=== PATIENT | female | born 1945 | race Caucasian/White ===

== ENCOUNTER → 2017-02-16 | Day surgery (SDC) | payer BC ==
[2017-02-05 14:50] VITALS: Ht 156.2 cm; Wt 72.7 kg
[~2017-02-16] VITALS: Ht 156.2 cm; Wt 72.7 kg
[~2017-02-16] MED LIST: 500ML BSS 0.3ML EPI 1:1000PF IRRIG ONE; ACETAMINOPHEN 325 MG TAB PO PRN; ALPR-411 PO; AMVISC PLUS 0.8ML SYRINGE INT OCU ONE; ASPCH81X PO; ATROPINE SULFATE 0.1 MG/ML 5ML SYR IV PRN; BRIMONIDINE TART 0.2% OP SOLN PER DROP CHARGE ONE; BSS FLUSH ONE; BUPR100T8 PO; CLB/200 PO; COEN10CA5 PO; CYAN100020 PO; DTR5 PO; ENDOCOAT 0.85ML SYRINGE INT OCU ONE; ESCI1TAB10 PO; EpHEDrine SULFATE INJ 50 MG/ML AMP IV PRN; EpINEphrine INJ 1MG/ML AMP 1 MG/ML AMP ONE; KRIL1CAP16 PO; LACTATED RINGER'S 1000ML 500 ML IV SCH; LEVO100T84 PO; LIDOCAINE 4% OP SOLN DROP CHARGE ONE; LIDOCAINE 4% OP SOLN DROP CHARGE OPL SCH; LIDOCAINE HCL 1% MPF 2 ML VIAL ONE; MELA5CAP PO; METO25TA3 PO; MIDAZOLAM HCL 1 MG/ML 2ML VIAL ONE; MOXIFLOXACIN OPH SOLN PER DROP CHARGE ONE; MULT-506 PO; POVIDONE-IODINE OP SOLN 30 ML BTL ONE; PRAV20TA PO; PROPARACAINE 0.5% OP SOLN PER DROP CHARGE OPL SCH; PRT/20 PO; QUIN10TA25 PO; TOBRAMYCIN/DEXAMETHASONE OPH OINT PER APPLN CHARGE ONE; VTMD1000 PO
[2017-02-16] MEDS: PHENYLEPHRINE HCL 2.5% OP SOLN PER DROP CHARGE OPL SCH ×2 (10:43→10:48)
[2017-02-16] MEDS: TROPICAMIDE 1% OP SOLN PER DROP CHARGE OPL SCH ×2 (10:44→10:49)
[2017-02-16] MEDS: CYCLOPENTOLATE HCL 1% OP SOLN PER DROP CHARGE OPL SCH ×2 (10:45→10:50)
[2017-02-16] MEDS: KETOROLAC 0.5% OP SOLN PER DROP CHARGE OPL SCH ×2 (10:46→10:51)
[2017-02-16] MEDS: MOXIFLOXACIN OPH SOLN PER DROP CHARGE OPL SCH ×2 (10:47→10:56)
--- NOTE | 2017-02-16 10:54 | History & Physical Bridge - [place] ---
H&P Re-Evaluation Bridge Note: I have examined the patient, reviewed the History & Physical and in the interval since the performance of the History & Physical I have noted the following changes of clinical significance: No changes noted
--- NOTE | 2017-02-16 11:47 | Discharge Instructions-SurgCtr ---
Discharge Instructions Date of Service Feb 16, 2017. Visit Reason for Visit: Cataract Left Eye Discharge Discharge Diagnosis / Problem: cataract left eye Discharge Goals Goal(s): Improve function Activity Recommendations Activity Limitations: per Instructions/Follow-up section Lifting Limitations: no more than 5 pounds Anesthesia . Post Anesthesia Instructions: If you have had General Anesthesia or IV Sedation: * Do not drive today. * Resume driving when surgeon permits. * Do not make important decisions or sign legal documents today. * Call surgeon for: 1. Temperature elevations greater than 101 degrees F. 2. Uncontrollable pain. 3. Excessive bleeding. 4. Persistent nausea and vomiting. 5. Medication intolerance (nausea, vomiting or rash). * For nausea and vomiting use only clear liquids such as: tea, soda, bouillon until nausea subsides, then gradually increase diet as tolerated. * If you have any concerns or questions, call your surgeon's office. If physician is unavailable and it is an emergency, call 911 or go to the nearest emergency room. . Instructions / Follow-Up Instructions / Follow-Up ACTIVITY RECOMMENDATIONS: * Light activities * You may walk outside, read, watch television. * Mild irritation and blurred vision are common for the first few days, redness around the white part of the eye is common. MEDICATIONS: Resume previous medications unless instructed otherwise by your surgeon. Eye drops (today and tomorrow): Cipro - one drop in operative eye every 2 hours while awake Prednisolone 1% - one drop in operative eye every 2 hours while awake Ilevro - one drop operative eye 1 times daily SPECIAL CARE INSTRUCTIONS: * If any problems or concerns, please call Dr. Barrientos's office at . * Keep plastic shield taped over eye to sleep at night. * Keep plastic shield taped over eye except to administer eye drops. * Keep plastic shield on until office visit the following day. FOLLOW UP VISIT: Follow-up with Dr. Barrientos in the [place] office as scheduled. If not already scheduled, please call the office at . Diet Recommendations Home Diet: resume previous diet Procedures Procedures Performed: Left Cataract Phacoemulsification With Intraocular Lens Implant Pending Studies Studies pending at discharge: no Medical Emergencies . Who to Call and When: Medical Emergencies: If at any time you feel your situation is an emergency, please call 911 immediately. . Non-Emergent Contact Non-Emergency issues call your: Rrt . . "Provider Documentation" section prepared by Дмитрий Barrientos. .
--- NOTE | 2017-02-16 11:47 | [facility] Post Operative Brief Note ---
Immediate Operative Summary Operative Date Feb 16, 2017. Pre-Operative Diagnosis Cataract Left Eye Post-Operative Diagnosis Same Procedure(s) Performed Left Cataract Phacoemulsification With Intraocular Lens Implant Surgeon Dr. 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
[2017-02-16 11:48] VITALS: TEMP 36.4
--- NOTE | 2017-02-16 11:57 | OPERATIVE REPORT ---
DATE OF OPERATION: 02/16/2017 PREOPERATIVE DIAGNOSIS: Cataract, left eye. POSTOPERATIVE DIAGNOSIS: Cataract, left eye. PROCEDURE: Phacoemulsification cataract extraction with intraocular lens placement, left eye. SURGEON: Dr. Barrientos. COMPLICATIONS: None. ESTIMATED BLOOD LOSS: None. ANESTHESIA: Topical with sedation. OPERATION AND FINDINGS: After informed consent was obtained in the holding area the patient was wheeled back to the Operating Room where cardiac monitoring leads and oxygen by nasal cannula was administered by Anesthesia. Gentle IV sedation was given, and the patient's left eye was prepped and draped in usual sterile fashion. A wire lid speculum was placed into the left eye and the operating microscope was swung into position. Using 0.12 forceps and a Supersharp blade a paracentesis port was made 3 o'clock hours away from the 3 o'clock position of patient's left eye. 1% non-preserved Lidocaine was then injected into the anterior chamber for anesthesia. A 2.2 mm keratotome blade was then used to make a shelved clear corneal incision at the 3 o'clock position of her left eye. Amvisc was injected into the anterior chamber and a cystotome and Utrata forceps were used to perform a curvilinear capsulorrhexis. BSS on a hydrodissection cannula was used to hydrodissect the lens nucleus away from the capsular bag. The phacoemulsification handpiece was then used in a stop and chop fashion to remove the lens nucleus. The irrigation and aspiration handpiece was then used to remove the residual cortical material. Amvisc was injected into the capsular bag and anterior chamber and a Bausch & Lomb MX60 25.0 Diopter intraocular lens was injected into the capsular bag. Irrigation and aspiration handpiece was used to remove the residual viscoelastic material. The wounds were hydrated and noted to be watertight. The wire lid speculum was removed from the eye. Vigamox, Brimonidine, and TobraDex ointment were placed on the eye and it was shielded. It should be noted that EndoCoat was used during the case to protect the cornea endothelium. DISPOSITION: The patient tolerated the procedure well and was wheeled to the post anesthesia care unit in stable condition. I attest to the content of the Intraoperative Record and any orders documented therein. Any exceptions are noted below. I attest to the content of the Intraoperative Record and any orders documented therein. Any exceptions are noted below. MTDD
--- NOTE | 2017-02-16 12:06 | Anesthesia Progress Nt - [facility] ---
Anesthesia Post Op Note Date & Time Feb 16, 2017 at 12:06 Vital Signs Pain Intensity: 0 Vital Signs Past 12 Hours Date Time Temp Pulse Resp B/P (MAP) Pulse Ox O2 Delivery O2 Flow Rate FiO2 02/16/17 11:48 36.4 64 16 144/76 (98) 95 Room Air 02/16/17 10:34 36.3 61 18 134/73 (93) 99 Room Air Notes Mental Status: alert / awake / arousable, participated in evaluation Pt Amnestic to Procedure: Yes Nausea / Vomiting: adequately controlled Pain: adequately controlled Airway Patency, RR, SpO2: stable & adequate BP & HR: stable & adequate Hydration State: stable & adequate Anesthetic Complications: no major complications apparent
[2017-02-16 12:16] VITALS: BP 143/80; PULSE 68; O2SAT 99
== END | disposition home or self-care (01) ==
LOC: X.SURG 09:38
PROVIDERS: ATTEND Ophthalmology
DX: H26.9 Unspecified cataract (principal); I25.10 Atherosclerotic heart disease of native coronary artery without angina pectoris; I25.2 Old myocardial infarction; I12.9 Hypertensive chronic kidney disease with stage 1 through stage 4 chronic kidney disease, or unspecified chronic kidney disease; N18.3 Chronic kidney disease, stage 3 (moderate); Z86.73 Personal history of transient ischemic attack (TIA), and cerebral infarction without residual deficits; Z88.5 Allergy status to narcotic agent; Z96.649 Presence of unspecified artificial hip joint; Z85.850 Personal history of malignant neoplasm of thyroid

== ENCOUNTER → 2017-03-16 | Day surgery (SDC) | payer BC ==
[2017-03-13 08:23] VITALS: Ht 156.2 cm; Wt 72.7 kg
[~2017-03-16] VITALS: Ht 156.2 cm; Wt 72.7 kg
[~2017-03-16] MED LIST changes: -LIDOCAINE 4% OP SOLN DROP CHARGE OPL SCH; +LIDOCAINE 4% OP SOLN DROP CHARGE OPR SCH; +ONDANSETRON INJ 2 MG/ML 2 ML VIAL IV PRN; -PROPARACAINE 0.5% OP SOLN PER DROP CHARGE OPL SCH; +PROPARACAINE 0.5% OP SOLN PER DROP CHARGE OPR SCH
[2017-03-16] MEDS: PHENYLEPHRINE HCL 2.5% OP SOLN PER DROP CHARGE OPR SCH ×2 (12:43→12:48)
[2017-03-16] MEDS: TROPICAMIDE 1% OP SOLN PER DROP CHARGE OPR SCH ×2 (12:44→12:49)
[2017-03-16] MEDS: CYCLOPENTOLATE HCL 1% OP SOLN PER DROP CHARGE OPR SCH ×2 (12:45→12:50)
[2017-03-16] MEDS: KETOROLAC 0.5% OP SOLN PER DROP CHARGE OPR SCH ×2 (12:46→12:51)
[2017-03-16] MEDS: MOXIFLOXACIN OPH SOLN PER DROP CHARGE OPR SCH ×2 (12:47→12:57)
--- NOTE | 2017-03-16 14:13 | Discharge Instructions-SurgCtr ---
Discharge Instructions Date of Service Mar 16, 2017. Visit Reason for Visit: Cataract Right Eye Discharge Discharge Diagnosis / Problem: cataract right eye Discharge Goals Goal(s): Improve function Activity Recommendations Activity Limitations: per Instructions/Follow-up section Lifting Limitations: no more than 5 pounds Anesthesia . Post Anesthesia Instructions: If you have had General Anesthesia or IV Sedation: * Do not drive today. * Resume driving when surgeon permits. * Do not make important decisions or sign legal documents today. * Call surgeon for: 1. Temperature elevations greater than 101 degrees F. 2. Uncontrollable pain. 3. Excessive bleeding. 4. Persistent nausea and vomiting. 5. Medication intolerance (nausea, vomiting or rash). * For nausea and vomiting use only clear liquids such as: tea, soda, bouillon until nausea subsides, then gradually increase diet as tolerated. * If you have any concerns or questions, call your surgeon's office. If physician is unavailable and it is an emergency, call 911 or go to the nearest emergency room. . Instructions / Follow-Up Instructions / Follow-Up ACTIVITY RECOMMENDATIONS: * Light activities * You may walk outside, read, watch television. * Mild irritation and blurred vision are common for the first few days, redness around the white part of the eye is common. MEDICATIONS: Resume previous medications unless instructed otherwise by your surgeon. Eye drops (today and tomorrow): Cipro - one drop in operative eye every 2 hours while awake Prednisolone 1% - one drop in operative eye every 2 hours while awake Ilevro - one drop operative eye 1 times daily SPECIAL CARE INSTRUCTIONS: * If any problems or concerns, please call Dr. Barrientos's office at . * Keep plastic shield taped over eye to sleep at night. * Keep plastic shield taped over eye except to administer eye drops. * Keep plastic shield on until office visit the following day. FOLLOW UP VISIT: Follow-up with Dr. Barrientos in the [place] office as scheduled. If not already scheduled, please call the office at . Diet Recommendations Home Diet: resume previous diet Procedures Procedures Performed: Right Cataract Phacoemulsification With Intraocular Lens Implant Pending Studies Studies pending at discharge: no Medical Emergencies . Who to Call and When: Medical Emergencies: If at any time you feel your situation is an emergency, please call 911 immediately. . Non-Emergent Contact Non-Emergency issues call your: Snuff Drier . . "Provider Documentation" section prepared by Дмитрий Barrientos. .
[2017-03-16 14:15] VITALS: TEMP 36.2
--- NOTE | 2017-03-16 14:15 | [facility] Operative Report ---
Operative Report Operative Date Mar 16, 2017. Pre-Operative Diagnosis Right Eye Cataract Post-Operative Diagnosis Same Procedure(s) Performed Right Cataract Phacoemulsification With Intraocular Lens Implant Surgeon Dr Barrientos It Support Analyst Surgeon(s) None Estimated Blood Loss 0ml Findings cataract right eye Fluids (cc crystalloids) see anesthesia record Specimens None Drains none Anesthesia local with sedation Complication(s) None Disposition Recovery Room / PACU Implants [id number] 22.0 Indications decreased vision right eye Description of Procedure After informed consent was obtained in the holding area the patient was wheeled back to the operating room where cardiac monitoring leads and oxygen by nasal cannula was administered by Anesthesia. Gentle IV sedation was given, and the patient's right eye was prepped and draped in usual sterile fashion. A wire lid speculum was placed into the right eye and the operating microscope was swung into position. Using 0.12 forceps and a Supersharp blade a paracentesis port was made 3 o'clock hours away from the 9 o'clock position of the patient's right eye. 1% non-preserved Lidocaine was then injected into the anterior chamber for anesthesia. A 2.2 mm keratotome blade was then used to make a shelved clear corneal incision at the 9 o'clock position of the right eye. Amvisc was injected into the anterior chamber and a cystotome and Utrata forceps were used to perform a curvilinear capsulorrhexis. BSS on a hydrodissection cannula was used to hydrodissect the lens nucleus away from the capsular bag. The phacoemulsification handpiece was then used in a stop and chop fashion to remove the lens nucleus. The irrigation and aspiration handpiece was then used to remove the residual cortical material. Amvisc was injected into the capsular bag and anterior chamber and a Bausch & Lomb MX60 22.0 Diopter intraocular lens was injected into the capsular bag. Irrigation and aspiration handpiece was used to remove the residual viscoelastic material. The wounds were hydrated and noted to be watertight. The wire lid speculum was removed from the eye. Vigamox, Brimonidine, and TobraDex ointment were placed on the eye and it was shielded. It should be noted that EndoCoat was used extensively during the case to protect the cornea endothelium. DISPOSITION: The patient tolerated the procedure well and was wheeled to the post anesthesia care unit in stable condition. I attest to the content of the Intraoperative Record and any orders documented therein. Any exceptions are noted below. I attest to the content of the Intraoperative Record and any orders documented therein. Any exceptions are noted below.
--- NOTE | 2017-03-16 14:25 | Anesthesia Progress Nt - [facility] ---
Anesthesia Post Op Note Date & Time Mar 16, 2017 at 14:25 Vital Signs Pain Intensity: 0 Vital Signs Past 12 Hours Date Time Temp Pulse Resp B/P (MAP) Pulse Ox O2 Delivery O2 Flow Rate FiO2 03/16/17 14:15 36.2 65 16 135/62 (86) 94 Room Air 03/16/17 12:34 37.1 71 22 111/71 (84) 93 Room Air Notes Mental Status: alert / awake / arousable, participated in evaluation Pt Amnestic to Procedure: No Nausea / Vomiting: adequately controlled Pain: adequately controlled Airway Patency, RR, SpO2: stable & adequate BP & HR: stable & adequate Hydration State: stable & adequate Anesthetic Complications: no major complications apparent non distressing recall as discussed preop
[2017-03-16 14:38] VITALS: BP 149/72; PULSE 65; O2SAT 98
== END | disposition home or self-care (01) ==
LOC: X.SURG 12:11
PROVIDERS: ATTEND Ophthalmology
DX: H25.11 Age-related nuclear cataract, right eye (principal); I10 Essential (primary) hypertension; E78.5 Hyperlipidemia, unspecified; M06.9 Rheumatoid arthritis, unspecified; F32.9 Major depressive disorder, single episode, unspecified; F41.9 Anxiety disorder, unspecified; Z79.82 Long term (current) use of aspirin; I25.2 Old myocardial infarction; Z86.73 Personal history of transient ischemic attack (TIA), and cerebral infarction without residual deficits; E03.9 Hypothyroidism, unspecified; Z96.649 Presence of unspecified artificial hip joint; I25.10 Atherosclerotic heart disease of native coronary artery without angina pectoris; K21.9 Gastro-esophageal reflux disease without esophagitis; M19.90 Unspecified osteoarthritis, unspecified site

== ENCOUNTER 2020-03-23 11:01 | Inpatient (IN) ==
--- NOTE | 2020-03-23 11:33 | Emergency Department Note ---
History of Present Illness General Chief complaint: Confusion Stated complaint: CONFUSION,HAND CATH DONE YESTERDAY Time Seen by Provider: 03/23/20 11:12 History of Present Illness This is a 75-year-old female that presents to the emergency department via private vehicle accompanied by female with complaints of "confusion, had cath done yesterday". The patient states that yesterday she underwent cardiac cathet erization procedure. She states that she was doing well and was discharged around 1:30 PM. The female friend at bedside states that prior to the procedure around 6:30 AM when she dropped her off she was doing well and that was the suspected last known well time. When she picked up from the procedure the patient seemed okay but when they pulled into the driveway of the house after the procedure the patient did not want it out of the car and seemed to be disoriented as to where she wants. The patient was then alone throughout the evening and then the friend went to pick her up again today at 8 AM and she notes that the patient thought she was at her daughter's house when indeed she was at her own house. The friend at bedside notes that this is the only unusual feature is that she does seems to be disoriented to where she is otherwise she seems okay. No fevers or chills. No chest pain or shortness of breath. Patient does note a history of [place] in 2012. No history of CVA. She takes a baby aspirin daily and did not stop taking this for the procedure. Home Medications Home Medications Medication Instructions Recorded Confirmed Type albuterol sulfate 90 mcg INHALATION UD PRN 03/23/20 03/23/20 History alprazolam 0.25 mg PO BID PRN 03/23/20 03/23/20 History aspirin [Aspirin Low Dose] 81 mg PO DAILY 03/23/20 03/23/20 History coenzyme Q10 [CoQ-10] 0 mg PO BID 03/23/20 03/23/20 History ezetimibe 0 mg PO DAILY 03/23/20 03/23/20 History furosemide 20 mg PO UD 03/23/20 03/23/20 History levothyroxine 125 mcg PO QAM 03/23/20 03/23/20 History meloxicam 7.5 - 15 mg PO UD PRN 03/23/20 03/23/20 History metoprolol succinate 0 mg PO BID 03/23/20 03/23/20 History nitroglycerin 0.4 mg SUBLINGUAL UD PRN 03/23/20 03/23/20 History oxybutynin chloride 10 mg PO DAILY PRN 03/23/20 03/23/20 History pantoprazole 20 mg PO DAILY 03/23/20 03/23/20 History pravastatin 40 mg PO HS 03/23/20 03/23/20 History prednisone 20 mg PO UD 03/23/20 03/23/20 History quinapril 10 mg PO DAILY 03/23/20 03/23/20 History Allergies Allergy/AdvReac Type Severity Reaction Status Date / Time morphine Allergy Unknown SHORTNESS Verified 03/23/20 11:49 OF BREATH simvastatin Allergy Unknown Verified 03/23/20 11:49 Past Med/Surg History Medical History CAD (coronary artery disease), [place] coronary artery Carotid artery stenosis Chronic diastolic CHF (congestive heart failure) GERD (gastroesophageal reflux disease) History of CVA (cerebrovascular accident) HTN (hypertension), benign Hx of myocardial infarction Hyperlipidemia Hypothyroidism Severe aortic valve stenosis Subclavian artery stenosis Surgical History History of hysterectomy Hx of cardiac catheterization Social History Smoking Status: Never smoker Hx Alcohol Use: No Hx Substance Use: No Preferred Language: Greek Communication Ability: Effective Beliefs That Will Affect Care: None Current Living Situation: Alone Feels Safe at Home: Yes Review of Systems A total of 10 systems reviewed and were otherwise negative Physical Exam Vital Signs Vital Signs - 24 hr 03/23/20 11:02 03/23/20 13:01 Temperature 36.8 C Temperature Source Oral Pulse Rate 93 H Pulse Rate [Apical] 75 Pulse Rhythm Regular Pulse Strength Normal Respiratory Rate 16 18 Respiratory Effort / Characteristics Non-Labored Spontaneous Respiratory Depth Normal Respiratory Pattern Regular Blood Pressure 96/52 L Blood Pressure [Left Arm] 121/55 L Blood Pressure Mean 66 Blood Pressure Mean [Left Arm] 77 Blood Pressure Position Sitting Pulse Oximetry 96 95 Oxygen Delivery Method Room Air Room Air Sepsis Recent Fever Within 48 Hours No Sepsis New/Unexplained Change in Mental Status N/A Sepsis Action Taken by Nursing No Action Required VITAL SIGNS - Vital signs and nursing notes were reviewed. Stable and afebrile, mildly hypotensive. GENERAL -75-year-old female appearing her stated age who is in no acute distress. Communicates well with provider and answers questions appropriately. SKIN - Without rashes. Bruising to the right medial wrist without any large hematoma or evidence of active extravasation. HEAD - NC/AT. EYES - PERRL with EOMI bilaterally. Sclera anicteric. Palpebral conjunctiva pink and moist with no injection noted. EARS - No deformities of external structures noted on gross examination bilaterally. No pain elicited with palpation of the tragus bilaterally. External auditory canals without discharge or otorrhea. Tympanic membranes pearly thorpe without retraction or bulging. No fluid or purulent material visualized behind the TM. Handle of malleus, umbo, cone of light, pars tensa/flaccid all easily vi sualized. NOSE - Midline and without cyanosis. No epistaxis or purulent drainage noted. Septum midline without deviation or septal hematoma noted. MOUTH/OROPHARYNX - Without perioral cyanosis. Buccal mucosa pink and moist and without leukoplakia. Tongue midline with equal elevation of palate bilaterally. No tonsillar hypertrophy, erythema, or exudates noted. Fair dentition noted. NECK - Neck with FROM. Supple to palpation. No lymphadenopathy noted. No nuchal rigidity. LUNGS - Chest wall symmetric without accessory muscle use, intercostals retractions, or central cyanosis. Normal vesicular breath sounds CTA B/L. No wheezes, rales, or rhonchi appreciated. CARDIAC - RRR EXTREMITIES - No clubbing or peripheral cyanosis. No pretibial edema present. +5/5 strength noted in UE/LE bilaterally. NEUROLOGIC - Cranial nerves II through XII grossly intact. Sensory intact to light touch throughout. PSYCH - A&Ox3 and cooperates fully with examiner. Pt is very pleasant and interacts well with examiner. Course Administered Medications Discontinued Medications Ioversol (Optiray 320 125ml) 118 ml IV ONCE ONE Stop: 03/23/20 13:00 Last Admin: 03/23/20 13:00 Dose: 118 ml Documented by: [id number] Medical Decision Making Laboratory Data Result diagrams: 03/23/20 11:40 03/23/20 11:40 Lab Results 03/23/20 03/23/20 03/23/20 Range/Units 11:40 11:40 11:40 WBC 9.27 (4.8-10.8) K/uL RBC 4.07 L (4.2-5.4) M/uL Hgb 13.1 (12.0-16.0) g/dL Hct 39.4 (37-47) % MCV 96.8 (80-100) fL MCH 32.2 (25-34) pg MCHC 33.2 (32-36) g/dL RDW Std Deviation 48.0 H (36.4-46.3) fL RDW Coeff of [place] 13.6 (11.5-14.5) % Plt Count 265 (130-400) K/uL MPV 8.9 (7.4-10.4) fL Immature Gran % (Auto) 0.1 % Neut % (Auto) 74.6 % Lymph % (Auto) 14.1 % [place] % (Auto) 9.3 % Eos % (Auto) 1.7 % Baso % (Auto) 0.2 % Neut # (Auto) 6.91 H (1.4-6.5) K/uL Lymph # (Auto) 1.31 (1.2-3.4) K/uL [place] # (Auto) 0.86 H (0.11-0.59) K/uL Eos # (Auto) 0.16 (0-0.5) K/uL Baso # (Auto) 0.02 (0-0.2) K/uL Immature Gran # (Auto) 0.01 (0.00-0.02) K/uL PT 10.7 (9.0-12.0) Seconds INR 1.0 (0.9-1.1) APTT 28.1 (21.0-31.0) Seconds PTT Ratio 1.0 Sodium 139 (136-145) mmol/L Potassium 4.3 D (3.5-5.1) mmol/L Chloride 107 (98-107) mmol/L Carbon Dioxide 28 (21-32) mmol/L Anion Gap 4.0 (3-11) BUN 13 (7-18) mg/dl Creatinine 0.93 (0.6-1.2) mg/dl Est Cr Clr Drug Dosing 44.2 ml/min Est GFR ( Amer) 68.7 Est GFR (Non-Af Amer) 59.3 BUN/Creatinine Ratio 14.4 (10-20) Glucose 94 (70-99) mg/dl Calcium 8.8 (8.5-10.1) mg/dl Magnesium 2.1 (1.8-2.4) mg/dl Total Bilirubin 0.5 (0.2-1) mg/dl AST 29 (15-37) U/L ALT 33 (12-78) U/L Alkaline Phosphatase 62 (45-117) U/L Troponin I 0.023 (0-0.045) ng/ml Total Protein 7.2 (6.4-8.2) gm/dl Albumin 3.4 (3.4-5.0) gm/dl Globulin 3.8 (2.5-4.0) gm/dl Albumin/Globulin Ratio 0.9 (0.9-2) Imaging Data Radiologist's Impression: CT head/brain wo con CLINICAL HISTORY: Stroke evaluation COMPARISON STUDY: No previous studies for comparison. TECHNIQUE: Axial CT of the brain is performed from the vertex to the skull base. IV contrast was not administered for this examination. A dose lowering technique was utilized adhering to the principles of ALARA. CT DOSE: FINDINGS: There is a confluent right frontal lobe hypodensity involving thorpe and white matter measuring 5 cm. This is compatible with a subacute infarct. There is no CT evidence of acute acute hemorrhage. There is no midline shift. There is a nonspecific 2 mm calcific focus in the right sylvian fissure region as visualized image #9/59. There is mild right hemispheric edema with right sciatic cortical effacement. There are moderately extensive white matter hypodensities likely on a small vessel basis. There is no evidence of pathologic ventricular dilatation. There is no evidence of acute sinusitis IMPRESSION: 1. Subacute 5 cm right frontal lobe infarct in the right MCA distribution. 2. No evidence of acute hemorrhage. ACT 112: Negative or not required by law. Electronically signed by: Valdo Jaimes M.D. 03/23/2020 1:17 PM CTA ANGIOGRAPHY OF THE HEAD CLINICAL HISTORY: Stroke evaluation COMPARISON STUDY: No previous studies for comparison. TECHNIQUE: Helical axial images of the head were obtained following uneventful intravenous administration of 118 cc of Optiray 320. Sagittal and coronal reconstructions were viewed as well as maximal intensity projections on an independent 3-D workstation. Automated exposure control was utilized for the study. A dose lowering technique was utilized adhering to the principles of ALARA. CT DOSE: 1060.33 mGy.cm FINDINGS: Please note that the head CT will be reported separately. No acute intracranial hemorrhage, midline shift or mass effect is present. Ventricular system is normal. Basilar cisterns are patent. There are no extra axial collections. Hypodensity with loss of thorpe-white differentiation within the right frontal lobe is better depicted on the head CT will be reported separately . The bilateral M1, M2, A1 and A2 segments are patent. No abrupt vessel cut off is identified. There is no intraluminal thrombus. The posterior circulation is also intact. No intracranial aneurysm or dissection is noted. Note is made of mild calcified plaque within the bilateral cavernous carotids. IMPRESSION: 1. No intraluminal thrombus or abrupt vessel cut off identified. No intracranial aneurysm. 2. Hypodensity with loss of thorpe-white infiltration within the right frontal lobe, shown better on head CT. This suggests a subacute to acute infarct. ACT 112: Negative or not required by law. Electronically signed by: Lb Monroy M.D. 03/23/2020 1:[address] angio neck with con CLINICAL HISTORY: 75 years-old Female with Stroke evaluation. Acute strokelike symptoms COMPARISON STUDY: CTA of the head of same day TECHNIQUE: Following the IV administration of 118 mL of Optiray 320, CT angiogram of the neck was performed from the aortic arch to the skull base. Images are reviewed in the axial, sagittal, and coronal planes. 3-D MIPS images are created and assessed. IV contrast was administered without complication. All measurements were calculated based on NASCET criteria. A dose lowering technique was utilized adhering to the principles of ALARA. FINDINGS: Mixed plaque of the thoracic aortic arch. Severe calcified plaque the proximal left subclavian artery results in high-grade stenosis. Large calcified plaque at the origin of the right subclavian artery results in approximately 60% stenosis on image 58 series 6. Mixed plaque of the carotid bulbs bilaterally. Endarterectomy changes of the right internal carotid artery with patent graft. There is moderate multifocal luminal irregularity involving the distal right cervical segment without high-grade stenosis. The left ICA is patent. Dominant right vertebral artery. Calcified plaque at the origin of the right vertebral artery causes greater than 50% luminal narrowing, image 85 series 6. The remainder of the right vertebral artery is widely patent. Calcified plaque at the origin of the left vertebral artery on image 76 series 6 causes high- grade stenosis. There is additional multifocal areas of high-grade stenosis involving the V2 segment (please see bookmarks). Imaged basilar artery is patent. No pneumothorax. Surgical clips are noted within the region of the right thyroid. Atrophic parotid glands. Secretions are noted within the left piriform sinus. Patent airway. Prior bilateral lens replacement. Multilevel degenerative changes of the spine. IMPRESSION: 1. Mixed plaque of the bilateral carotid bulbs, right greater than left with prior right carotid endarterectomy. No high-grade stenosis of the carotid arteries. 2. High-grade stenosis of the proximal left subclavian and vertebral arteries. 3. Large calcified plaque at the proximal right subclavian artery results in approximately 60% stenosis. 4. At least 50% luminal narrowing at the origin of the right vertebral artery. ACT 112: Negative or not required by law. The above report was generated using voice recognition software. It may contain grammatical, syntax or spelling errors. Electronically signed by: Carl Mac M.D. 03/23/2020 1:56 PM ECG Data Additional Comments: Normal sinus rhythm at a rate of 71 bpm. QTc 419. QRS 72. No ST elevation. No evidence of [place]. This was compared to EKG of March 21, 2015 and no significant change was found. MDM Narrative Patient was seen and evaluated as above in room B03. Review was performed of nursing notes and vital signs. I did review pertinent previous visits and patient history. After obtaining a thorough history and physical examination the above work up was performed. Patient recently underwent cardiac catheterization yesterday by Dr. Wu. Patient presents with mildly lower blood pressure but no focal deficit on my examination. She is afebrile. Patient is alert and oriented on my examination. Friend at bedside also agrees that her confusion to location seems to have resolved. There is no leukocytosis or emergent anemia. No emergent metabolic disturbance. CTA head and neck were obtained. Patient is certainly outside of the window for TPA noting her last known well is greater than 24 hours ago. There is unfortunately an acute to subacute appearing 5 cm right frontal lobe infarct in the right MCA distribution. I did discuss this with the attending physician as well as the hospitalist, Dr. Paulino. Patient was informed upon the findings. She will be admitted for further evaluation and management. Please refer to further documentation regarding her stay. Case was discussed with the attending physician. An order was placed for continuous cardiac monitoring. The monitor shows a rate of 75 with sinus rhythm. I attest that I have personally reviewed the patient medication list. I attest that I have reviewed the patient's blood pressure and it was found to be mildly low GCS: 15 In the evaluation and treatment of this patient, the following differential diagnoses were considered: Concussion, Contrecoup Injury, Brain Tumor, Depression, Encephalitis, Hypothyroidism, Meningitis, CVA, TIA, Migraine, [place] Headache, Intracranial Abnormality, Intracranial Hemorrhage, Subdural Hematoma, Subarachnoid Hemorrhage, Hydrocephalus, among others. Impression & Plan Acute CVA (cerebrovascular accident) Discharge Plan Visit Data Chief Complaint: Confusion Stated Complaint: CONFUSION,HAND CATH DONE YESTERDAY ED Provider: Rem[facility] Benav[facility] ED Midlevel Provider: Manjit Ortiz Discharge Problem: Acute CVA (cerebrovascular accident) Patient Disposition: Admitted As Inpatient Condition: Good Forms Stand Alone Forms: My [facility], Virtual Emergency Department, Important Visit Information Prescriptions Prescriptions: No Action oxybutynin chloride 10 mg tablet extended release 24hr 10 mg PO DAILY PRN (Reason: urinary symptons) RF: 0 aspirin [Aspirin Low Dose] 81 mg Tablet,Delayed Release (Dr/Ec) 81 mg PO DAILY RF: 0 levothyroxine 125 mcg tablet 125 mcg PO QAM RF: 0 furosemide 20 mg tablet 20 mg PO UD RF: 0 prednisone 20 mg tablet 20 mg PO UD RF: 0 meloxicam 7.5 mg tablet 7.5 - 15 mg PO UD PRN (Reason: Pain) RF: 0 quinapril 10 mg tablet 10 mg PO DAILY RF: 0 pravastatin 40 mg tablet 40 mg PO HS RF: 0 metoprolol succinate 50 mg tablet extended release 24 hr 0 mg PO BID RF: 0 pantoprazole 20 mg tablet,delayed release (DR/EC) 20 mg PO DAILY RF: 0 alprazolam 0.25 mg tablet 0.25 mg PO BID PRN (Reason: Anxiety) RF: 0 nitroglycerin 0.4 mg tablet, sublingual 0.4 mg sublingual UD PRN (Reason: Chest Pain) RF: 0 albuterol sulfate 90 mcg/actuation HFA aerosol inhaler 90 mcg INHALATION UD PRN (Reason: Wheezing) RF: 0 ezetimibe 10 mg tablet 0 mg PO DAILY RF: 0 coenzyme Q10 [CoQ-10] 100 mg Capsule 0 mg PO BID RF: 0 Referrals Referrals: Nick Carrasco DO [Primary Care Provider] -
[2020-03-23 11:52] LABS: Basophils # (auto) 0.02 K/uL (0-0.2); Basophils % (auto) 0.2 %; Eosinophils # (auto) 0.16 K/uL (0-0.5); Eosinophils % (auto) 1.7 %; Hematocrit (blood only) 39.4 % (37-47); Hemoglobin 13.1 g/dL (12.0-16.0); Immature Granulocytes # (auto) 0.01 K/uL (0.00-0.02); Immature Granulocytes % (auto) 0.1 %; Lymphocytes # (auto) 1.31 K/uL (1.2-3.4); Lymphocytes % (auto) 14.1 %; Mean Corpuscular Hemoglobin 32.2 pg (25-34); Mean Corpuscular Hgb Conc 33.2 g/dL (32-36); Mean Corpuscular Volume 96.8 fL (80-100); Mean Platelet Volume 8.9 fL (7.4-10.4); Monocytes # (auto) 0.86 K/uL (0.11-0.59); Monocytes % (auto) 9.3 %; Neutrophils # (auto) 6.91 K/uL (1.4-6.5); Neutrophils % (auto) 74.6 %; Platelet Count 265 K/uL (130-400); RDW Coefficient of Variation 13.6 % (11.5-14.5); Red Blood Count 4.07 M/uL (4.2-5.4); White Blood Count 9.27 K/uL (4.8-10.8)
[2020-03-23 12:04] LABS: Partial Thromboplastin Time 28.1 Seconds (21.0-31.0); Prothrombin Time 10.7 Seconds (9.0-12.0)
[2020-03-23 12:25] LABS: Albumin Globulin Ratio 0.9 (0.9-2); Albumin Level 3.4 gm/dl (3.4-5.0); BUN Creatinine Ratio 14.4 (10-20); Bilirubin,Total 0.5 mg/dl (0.2-1); Calcium 8.8 mg/dl (8.5-10.1); Creatinine Clr Calc Pharmacy 44.2 ml/min; Est GFR (African American) 68.7; Est GFR (Non-African American) 59.3; Globulin 3.8 gm/dl (2.5-4.0); Magnesium 2.1 mg/dl (1.8-2.4); Potassium 4.3 mmol/L (3.5-5.1); Total Protein 7.2 gm/dl (6.4-8.2); Troponin I 0.023 ng/ml (0-0.045)
[2020-03-23] MEDS ORDERED: OPTIRAY 320 125ml IV ONE ×2 (12:59→15:45)
--- NOTE | 2020-03-23 13:19 | CT Scan Report ---
CT head/brain wo con CLINICAL HISTORY: Stroke evaluation COMPARISON STUDY: No previous studies for comparison. TECHNIQUE: Axial CT of the brain is performed from the vertex to the skull base. IV contrast was not administered for this examination. A dose lowering technique was utilized adhering to the principles of ALARA. CT DOSE: FINDINGS: There is a confluent right frontal lobe hypodensity involving thorpe and white matter measuring 5 cm. T his is compatible with a subacute infarct. There is no CT evidence of acute acute hemorrhage. There i s no midline shift. There is a nonspecific 2 mm calcific focus in the right sylvian fissure region as visualized image #9/59. There is mild right hemispheric edema with right sciatic cortical effacement . There are moderately extensive white matter hypodensities likely on a small vessel basis. There is no evidence of pathologic ventricular dilatation. There is no evidence of acute sinusitis IMPRESSION: 1. Subacute 5 cm right frontal lobe infarct in the right MCA distribution. 2. No evidence of acute hemorrhage. ACT 112: Negative or not required by law. Electronically signed by: Valdo Jaimes M.D. 03/23/2020 1:17 PM
--- NOTE | 2020-03-23 13:28 | CT Scan Report ---
CTA ANGIOGRAPHY OF THE HEAD CLINICAL HISTORY: Stroke evaluation COMPARISON STUDY: No previous studies for comparison. TECHNIQUE: Helical axial images of the head were obtained following uneventful intravenous administr ation of 118 cc of Optiray 320. Sagittal and coronal reconstructions were viewed as well as maximal i ntensity projections on an independent 3-D workstation. Automated exposure control was utilized for the study. A dose lowering technique was utilized adhering to the principles of ALARA. CT DOSE: 1060.33 mGy.cm FINDINGS: Please note that the head CT will be reported separately. No acute intracranial hemorrhage, midline shift or mass effect is present. Ventricular system is normal. Basilar cisterns are patent. There are no extra axial collections. Hypodensity with loss of thorpe-white differentiation within the right frontal lobe is better depicted on the head CT will be reported separately. The bilateral M1, M 2, A1 and A2 segments are patent. No abrupt vessel cut off is identified. There is no intraluminal th rombus. The posterior circulation is also intact. No intracranial aneurysm or dissection is noted. No te is made of mild calcified plaque within the bilateral cavernous carotids. IMPRESSION: 1. No intraluminal thrombus or abrupt vessel cut off identified. No intracranial aneurysm. 2. Hypodensity with loss of thorpe-white infiltration within the right frontal lobe, shown better on he ad CT. This suggests a subacute to acute infarct. ACT 112: Negative or not required by law. Electronically signed by: Lb Monroy M.D. 03/23/2020 1:27 PM
--- NOTE | 2020-03-23 13:57 | CT Scan Report ---
CT angio neck with con CLINICAL HISTORY: 75 years-old Female with Stroke evaluation. Acute strokelike symptoms COMPARISON STUDY: CTA of the head of same day TECHNIQUE: Following the IV administration of 118 mL of Optiray 320, CT angiogram of the neck was per formed from the aortic arch to the skull base. Images are reviewed in the axial, sagittal, and tejeda l planes. 3-D MIPS images are created and assessed. IV contrast was administered without complication . All measurements were calculated based on NASCET criteria. A dose lowering technique was utilized adhering to the principles of ALARA. FINDINGS: Mixed plaque of the thoracic aortic arch. Severe calcified plaque the proximal left subclavian artery results in high-grade stenosis. Large calcified plaque at the origin of the right subclavian artery results in approximately 60% stenosis on image 58 series 6. Mixed plaque of the carotid bulbs bilater ally. Endarterectomy changes of the right internal carotid artery with patent graft. There is moderat e multifocal luminal irregularity involving the distal right cervical segment without high-grade sten osis. The left ICA is patent. Dominant right vertebral artery. Calcified plaque at the origin of the right vertebral artery causes greater than 50% luminal narrowing, image 85 series 6. The remainder of the right vertebral artery is widely patent. Calcified plaque at the origin of the left vertebral artery on image 76 series 6 caus es high-grade stenosis. There is additional multifocal areas of high-grade stenosis involving the V2 segment (please see bookmarks). Imaged basilar artery is patent. No pneumothorax. Surgical clips are noted within the region of the right thyroid. Atrophic parotid gl ands. Secretions are noted within the left piriform sinus. Patent airway. Prior bilateral lens replac ement. Multilevel degenerative changes of the spine. IMPRESSION: 1. Mixed plaque of the bilateral carotid bulbs, right greater than left with prior right carotid enda rterectomy. No high-grade stenosis of the carotid arteries. 2. High-grade stenosis of the proximal left subclavian and vertebral arteries. 3. Large calcified plaque at the proximal right subclavian artery results in approximately 60% stenos is. 4. At least 50% luminal narrowing at the origin of the right vertebral artery. ACT 112: Negative or not required by law. The above report was generated using voice recognition software. It may contain grammatical, syntax o r spelling errors. Electronically signed by: Carl Mac M.D. 03/23/2020 1:56 PM
--- NOTE | 2020-03-23 14:31 | History & Physical Report ---
Date of Service March 23, 2020 Assessment & Plan (1) Acute CVA (cerebrovascular accident): With a history of severe diffuse atherosclerotic disease both in the cerebral vasculature, coronary arteries, and carotids/subclavian/vertebral. Also with history of prior CVA during carotid endarterectomy. Presents with subacute right frontal stroke seen on CT, with no major occlusions that seem acute on CT angiogram of head and neck. Most likely thrombotic ischemic stroke Fortunately, she seems to be completely back to her baseline with no focal neurological deficits at this time of admission -Admit to PCU -Continue telemetry monitoring to look for atrial fibrillation -Discussed the case with neurology-we will add on Plavix to her daily aspirin at least for 3 weeks and then convert to Plavix alone at that time -Check lipid panel in the morning-of note, she reports a significant intolerance to multiple statin drugs with the exception of the current pravastatin 40 mg -Continue Zetia and pravastatin -Allow permissive hypertension-hold home lisinopril and metoprolol for now -Give 1 L of normal saline at 75 an hour to keep blood pressure from dropping too low, but giving fluids cautiously in the setting of heart failure with severe aortic stenosis -Serial troponins ordered as troponin was mildly detectable -Neuro checks and NIH scale daily -Neurology consultation appreciated -Check echocardiogram for thrombus -PT/OT/speech therapy consultations -Check hemoglobin A1c -Discontinue NSAIDs from home-would not use meloxicam (2) Severe aortic valve stenosis: Was being evaluated for TAVR I discussed her case with her primary card painter on the phone-he reports that with this new stroke, this significantly reduces her chances of being accepted for TAVR, however he will refer her case to the complex board review at [facility] for further evaluation -Avoid hypotension (3) CAD (coronary artery disease), [place] coronary artery: With known severe single-vessel disease with stents patent on cardiac catheterization on 03/22 She has a history of 2 drug-eluting stents to the proximal and mid circumflex in 09/2013 -Continue aspirin and adding Plavix as above for acute CVA -Continue pravastatin as she cannot tolerate more intense statins -Continue Zetia -Holding metoprolol and lisinopril for permissive hypertension as above (4) Chronic diastolic CHF (congestive heart failure): Recently started on low-dose diuretic with Lasix 20 mg 3 times a week as per her card painter for acute on chronic diastolic CHF She is not volume overloaded at this time -Hold home Lasix while trying to keep blood pressure up with acute stroke Watch for volume overload -Daily weights, strict I's and O's (5) Carotid artery stenosis: Status post left carotid endarterectomy and right carotid stent -Continue antiplatelet therapy, statin (6) Subclavian artery stenosis: With 60% stenosis of the right proximal subclavian artery and high-grade stenosis of the left subclavian artery seen on CT angiogram of the neck today Does get symptoms in the arms with overuse No intervention needed Continue antiplatelet therapy and statin therapy as above (7) HTN (hypertension), benign: Blood pressures controlled Permissive hypertension and holding metoprolol lisinopril as above (8) Hyperlipidemia: Intolerant of statins as above -Continue pravastatin, Zetia Checking lipid panel in the morning (9) Vertebral artery stenosis: Noted on CT angiogram of the neck with high-grade stenosis of the left vertebral artery and 50% stenosis of the origin of the right vertebral artery Antiplatelet and statin therapy as above No intervention needed at this time as she is not having symptoms related to the posterior circulation (10) GERD (gastroesophageal reflux disease): Continue PPI (11) History of CVA (cerebrovascular accident): Previous stroke with left sided facial droop residual (12) Hypothyroidism: Continue levothyroxine from home -Check TSH in the morning (13) DVT prophylaxis: Lovenox SQ, SCDs Disposition-admit to PCU PT/OT evaluations placed DNR/DNI-as discussed with the patient upon admission. History of Present Illness Chief Complaint: Confusion Primary Care Provider: Nick Carrasco DO This patient is a 75-year-old female with a history of severe aortic stenosis, severe CAD status post BEAU X2 to the circumflex and 70% ostial small RCA stenosis, hyperlipidemia, HTN, s/p left carotid endarterectomy and right carotid stenting, severe bilateral subclavian artery stenosis rate greater than left, chronic diastolic CHF, GERD, history of CVA with carotid endarterectomy, hypothyroidism, who had a cardiac catheterization on 03/22 at this facility in preparation for TAVR evaluation. She was picked up by a friend at 1330 yesterday who took her home. When they got home, the friend noted that the patient appeared confused and did not want to get out of the car at first. She finally convinced her to get out of the car and dropped her off at home. This morning, the friend came to check on her at 8:00 in the morning and noted the patient continued to be confused and brought her to the ER. The patient reports she remembers getting home and feeding her cats. She did not eat dinner last night as she did not feel hungry. When she woke up this morning, she remembers thinking that she was at her daughter's house and still thinks that she was at her daughter's house at this point in time. She is now much less confused and her friend at the bedside reported to the ER PA that the patient was completely back to her baseline mental status in the ER. The patient reports a mild headache today, but denies numbness or tingling or weakness anywhere else. No difficulty with speech or word finding. She reports no difficulty with walking or loss of balance. She denies chest pains or shortness of breath. Here she was noted to have a subacute to acute appearing 5 cm right frontal CVA on noncontrast CT of the head. Because her last known well time was yesterday at 1330, she was not administered TPA. She has no other focal neurological deficits by history or on examination. She had a CT angiogram of the head and neck in the ER which showed right greater than left plaque of the bilateral carotid bulbs with prior carotid endarterectomy but no high-grade stenosis of the carotids, high-grade stenosis of the proximal left subclavian and vertebral arteries, and 60% stenosis of the proximal right subclavian artery as well as 50% narrowing at the origin of the right vertebral artery. CTA of the head showed no intraluminal thrombus or abrupt vessel cutoff, no intracranial aneurysm, and hypodensity in the right frontal lobe suggesting subacute to acute infarct. While she was still down in the ER after admission, the echocardiogram senior quality control technician was performing her echocardiogram and had concern for possible aortic dissection. I ordered a stat CT angiogram of the chest with dissection protocol that was negative for aortic dissection. She will be admitted for likely acute ischemic CVA for further work-up. Allergies Allergy/AdvReac Type Severity Reaction Status Date / Time morphine Allergy Unknown SHORTNESS Verified 03/23/20 11:49 OF BREATH simvastatin Allergy Unknown Verified 03/23/20 11:49 Home Medications Home Medications Medication Instructions Recorded Confirmed Type albuterol sulfate 90 mcg INHALATION UD PRN 03/23/20 03/23/20 History alprazolam 0.25 mg PO BID PRN 03/23/20 03/23/20 History aspirin [Aspirin Low Dose] 81 mg PO DAILY 03/23/20 03/23/20 History coenzyme Q10 [CoQ-10] 0 mg PO BID 03/23/20 03/23/20 History ezetimibe 0 mg PO DAILY 03/23/20 03/23/20 History furosemide 20 mg PO UD 03/23/20 03/23/20 History levothyroxine 125 mcg PO QAM 03/23/20 03/23/20 History meloxicam 7.5 - 15 mg PO UD PRN 03/23/20 03/23/20 History metoprolol succinate 0 mg PO BID 03/23/20 03/23/20 History nitroglycerin 0.4 mg SUBLINGUAL UD PRN 03/23/20 03/23/20 History oxybutynin chloride 10 mg PO DAILY PRN 03/23/20 03/23/20 History pantoprazole 20 mg PO DAILY 03/23/20 03/23/20 History pravastatin 40 mg PO HS 03/23/20 03/23/20 History prednisone 20 mg PO UD 03/23/20 03/23/20 History quinapril 10 mg PO DAILY 03/23/20 03/23/20 History Past Med/Surg History Medical History CAD (coronary artery disease), [place] coronary artery Carotid artery stenosis Chronic diastolic CHF (congestive heart failure) DJD (degenerative joint disease) (Acute) GERD (gastroesophageal reflux disease) History of CVA (cerebrovascular accident) History of right common carotid artery stent placement HTN (hypertension), benign Hx of myocardial infarction Hyperlipidemia Hypothyroidism Severe aortic valve stenosis Subclavian artery stenosis Vertebral artery stenosis Surgical History H/O carotid endarterectomy History of hysterectomy History of thyroidectomy, subtotal Hx of BSO (bilateral salpingo-oophorectomy) Hx of cardiac catheterization Family History Father Coronary heart disease Myocardial infarction, Onset Age: 41 of an NH at age 39 Social History Smoking Status: Never smoker Second Hand Exposure: No; Do You Dip or Chew Tobacco: No; Tobacco Cessation Education Requested by Patient: No Hx Alcohol Use: Yes Alcohol type: wine Alcohol Intake Frequency: Monthly or Less Hx Substance Use: No Preferred Language: Bengali Communication Ability: Effective Inbound Telemarketer Required: No Beliefs That Will Affect Care: None marital status: / Current Living Situation: Alone current occupational status: retired 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 Other Information That Helps Us Care for You: No Feels Safe at Home: Yes Safety Concerns: Feels Safe At This Time Review of Systems Review of Systems: All systems reviewed & are unremarkable except as noted in HPI & below Physical Exam Constitutional: WD/WN, vitals as above Eyes: PERRL, conjunctivae normal, anicteric sclerae EOM intact bilaterally ENMT: external ear and nose normal, oropharynx normal Neck: trachea midline, no thyromegaly Respiratory: normal respiratory effort, lungs clear to auscultation Cardiovascular: RRR, no murmur, no edema Chest (Breasts): Chest: normal inspection of chest Gastrointestinal (Abdomen): normal bowel sounds, soft, nontender, no hepatosplenomegaly Musculoskeletal: Extremities: extremities normal to inspection; no cyanosis and no clubbing Skin: no rashes, warm and dry Neurologic: CN's II-XI intact bilaterally, deep tendon reflexes 2+ bilaterally, moves all extremities and awake; no focal motor deficits and not confused Speech / Cognition: normal speech, no expressive aphasia and normal cognition Motor/Sensory: no tremor, no pronator drift and no sensory deficit Coordination: normal ahakpb-kv-zzzz test, normal wbln-jl-zaks test and normal rapid alternating movements Psychiatric: A+Ox3, euthymic affect Lymphatic: no lymphedema Results & Data Results & Data ([facility]) Vital Signs (Past 12 Hours) Vital Signs Temp Pulse Pulse Resp BP BP Pulse Ox 03/23/20 13:01 75 18 121/55 L 95 03/23/20 11:02 36.8 C 93 H 16 96/52 L 96 Laboratory Results 03/23/20 03/23/20 03/23/20 Range/Units 20:30 16:00 11:40 WBC (4.8-10.8) K/uL RBC (4.2-5.4) M/uL Hgb (12.0-16.0) g/dL Hct (37-47) % MCV (80-100) fL MCH (25-34) pg MCHC (32-36) g/dL RDW Std Deviation (36.4-46.3) fL RDW Coeff of [place] (11.5-14.5) % Plt Count (130-400) K/uL MPV (7.4-10.4) fL Immature Gran % (Auto) % Neut % (Auto) % Lymph % (Auto) % [place] % (Auto) % Eos % (Auto) % Baso % (Auto) % Neut # (Auto) (1.4-6.5) K/uL Lymph # (Auto) (1.2-3.4) K/uL [place] # (Auto) (0.11-0.59) K/uL Eos # (Auto) (0-0.5) K/uL Baso # (Auto) (0-0.2) K/uL Immature Gran # (Auto) (0.00-0.02) K/uL PT (9.0-12.0) Seconds INR (0.9-1.1) APTT (21.0-31.0) Seconds PTT Ratio Sodium (136-145) mmol/L Potassium (3.5-5.1) mmol/L Chloride (98-107) mmol/L Carbon Dioxide (21-32) mmol/L Anion Gap (3-11) BUN (7-18) mg/dl Creatinine (0.6-1.2) mg/dl Est Cr Clr Drug Dosing ml/min Est GFR ( Amer) Est GFR (Non-Af Amer) BUN/Creatinine Ratio (10-20) Glucose (70-99) mg/dl Estimat Average Glucose Pending Hemoglobin A1c Pending Calcium (8.5-10.1) mg/dl Magnesium (1.8-2.4) mg/dl Total Bilirubin (0.2-1) mg/dl AST (15-37) U/L ALT (12-78) U/L Alkaline Phosphatase (45-117) U/L Troponin I 0.025 (0-0.045) ng/ml Total Protein (6.4-8.2) gm/dl Albumin (3.4-5.0) gm/dl Globulin (2.5-4.0) gm/dl Albumin/Globulin Ratio (0.9-2) Urine Color Yellow Urine Appearance Clear (Clear) Urine pH 7.0 (4.5-7.5) Ur Specific [place] > 1.045 H (1.000-1.030) Urine Protein Negative (Negative) Urine Glucose (UA) Negative (Negative) Urine Ketones Negative (Negative) Urine Blood Negative (Negative) Urine Nitrite Negative (Negative) Urine Bilirubin Negative (Negative) Urine Urobilinogen Negative (Negative) Ur Leukocyte Esterase Trace H (Negative) Urine WBC (Auto) 1-5 (0-5) /hpf Urine RBC (Auto) 0-4 (0-4) /hpf U Hyaline Cast (Auto) 0 (0-5) /lpf U Epithel Cells (Auto) 5-10 H (0-5) /lpf Urine Bacteria (Auto) Negative (Negative) 03/23/20 03/23/20 03/23/20 Range/Units 11:40 11:40 11:40 WBC 9.27 (4.8-10.8) K/uL RBC 4.07 L (4.2-5.4) M/uL Hgb 13.1 (12.0-16.0) g/dL Hct 39.4 (37-47) % MCV 96.8 (80-100) fL MCH 32.2 (25-34) pg MCHC 33.2 (32-36) g/dL RDW Std Deviation 48.0 H (36.4-46.3) fL RDW Coeff of [place] 13.6 (11.5-14.5) % Plt Count 265 (130-400) K/uL MPV 8.9 (7.4-10.4) fL Immature Gran % (Auto) 0.1 % Neut % (Auto) 74.6 % Lymph % (Auto) 14.1 % [place] % (Auto) 9.3 % Eos % (Auto) 1.7 % Baso % (Auto) 0.2 % Neut # (Auto) 6.91 H (1.4-6.5) K/uL Lymph # (Auto) 1.31 (1.2-3.4) K/uL [place] # (Auto) 0.86 H (0.11-0.59) K/uL Eos # (Auto) 0.16 (0-0.5) K/uL Baso # (Auto) 0.02 (0-0.2) K/uL Immature Gran # (Auto) 0.01 (0.00-0.02) K/uL PT 10.7 (9.0-12.0) Seconds INR 1.0 (0.9-1.1) APTT 28.1 (21.0-31.0) Seconds PTT Ratio 1.0 Sodium 139 (136-145) mmol/L Potassium 4.3 D (3.5-5.1) mmol/L Chloride 107 (98-107) mmol/L Carbon Dioxide 28 (21-32) mmol/L Anion Gap 4.0 (3-11) BUN 13 (7-18) mg/dl Creatinine 0.93 (0.6-1.2) mg/dl Est Cr Clr Drug Dosing 44.2 ml/min Est GFR ( Amer) 68.7 Est GFR (Non-Af Amer) 59.3 BUN/Creatinine Ratio 14.4 (10-20) Glucose 94 (70-99) mg/dl Estimat Average Glucose Hemoglobin A1c Calcium 8.8 (8.5-10.1) mg/dl Magnesium 2.1 (1.8-2.4) mg/dl Total Bilirubin 0.5 (0.2-1) mg/dl AST 29 (15-37) U/L ALT 33 (12-78) U/L Alkaline Phosphatase 62 (45-117) U/L Troponin I 0.023 (0-0.045) ng/ml Total Protein 7.2 (6.4-8.2) gm/dl Albumin 3.4 (3.4-5.0) gm/dl Globulin 3.8 (2.5-4.0) gm/dl Albumin/Globulin Ratio 0.9 (0.9-2) Urine Color Urine Appearance (Clear) Urine pH (4.5-7.5) Ur Specific [place] (1.000-1.030) Urine Protein (Negative) Urine Glucose (UA) (Negative) Urine Ketones (Negative) Urine Blood (Negative) Urine Nitrite (Negative) Urine Bilirubin (Negative) Urine Urobilinogen (Negative) Ur Leukocyte Esterase (Negative) Urine WBC (Auto) (0-5) /hpf Urine RBC (Auto) (0-4) /hpf U Hyaline Cast (Auto) (0-5) /lpf U Epithel Cells (Auto) (0-5) /lpf Urine Bacteria (Auto) (Negative) Diagnostic Findings CT angiogram of the head and neck as noted in HPI Chest CTA as noted in HPI ECG Additional Comments: ECG on 03/23/2020 with normal sinus rhythm, rate 71, slightly flattened T waves in aVL that are similar to previous ECG Code Status & VTE Plan VTE Prophylaxis Plan VTE Prophylaxis will be ordered: Yes PG Care Time/CCT Total # of Minutes Spent Total Time Spent with Patient: Total time spent is greater than 50% in coordination of care (as documented) at patient's floor/unit and/or counseling patient: Coding Level of Care Code 67066 Initial Inpt Care Lvl 3 Diagnoses Acute CVA (cerebrovascular accident) I63.9 Severe aortic valve stenosis I35.0 CAD (coronary artery disease), [place] coronary artery I25.10 Chronic diastolic CHF (congestive heart failure) I50.32 Carotid artery stenosis I65.29 Subclavian artery stenosis I77.1 HTN (hypertension), benign I10 Hyperlipidemia E78.5 Vertebral artery stenosis I65.09 GERD (gastroesophageal reflux disease) K21.9 History of CVA (cerebrovascular accident) Z86.73 Hypothyroidism E03.9 DVT prophylaxis Z29.9
[2020-03-23] MEDS ORDERED: SODIUM CHLORIDE 0.9% 1000ML 1,000 ML IV SCH (14:45)
[2020-03-23] MEDS ORDERED: CLOPIDOGREL BISULFATE 75 MG TAB PO ONE (15:20)
--- NOTE | 2020-03-23 16:01 | CT Scan Report ---
CT angio chest dissec wo/w con CT DOSE: 661.47 mGy.cm HISTORY: Mental status change. Chest pain. possible aortic dissection,CVA TECHNIQUE: Multiaxial CT images of the chest, abdomen, and pelvis were performed both before and afte r the intravenous administration of contrast to evaluate the aorta. Maximal intensity projection imag es were also obtained. A dose lowering technique was utilized adhering to the principles of ALARA. COMPARISON STUDY: None. FINDINGS: The thoracic aorta shows no evidence for aneurysm or dissection. The pulmonary vasculature enhances appropriately. Lungs are considered clear. No significant mediasti nal or hilar adenopathy. IMPRESSION: 1. No evidence for aortic dissection or aneurysm. 2. Lungs are clear. 3. No evidence for pulmonary embolus. ACT 112: Negative or not required by law. The above report was generated using voice recognition software. It may contain grammatical, syntax or spelling errors. Electronically signed by: Eloy Ayala M.D. 03/23/2020 4:00 PM
[2020-03-23] MEDS ORDERED: POLYETHYLENE (MIRALAX) 17 GM PACK PO PRN (16:32)
[2020-03-23] MEDS ORDERED: ACETAMINOPHEN 325 MG TAB PO PRN (16:32)
[2020-03-23] MEDS ORDERED: PHARMACIST DISCHARGE MED REC CONSULT PRN (16:32)
[2020-03-23] MEDS ORDERED: ONDANSETRON INJ 2 MG/ML 2 ML VIAL IV PRN (16:32)
[2020-03-23] MEDS ORDERED: ALBUTEROL HFA 8 GM INHALER INH PRN (16:32)
[2020-03-23] MEDS ORDERED: PNEUMOCOCCAL POLYSACCHARIDES 25 MCG/0.5 ML VIAL/SYR IM ONE (17:00)
[2020-03-23] MEDS ORDERED: PNEUMOCOCCAL ADMINISTRATION CHARGE ONE (17:00)
--- NOTE | 2020-03-23 18:16 | XCELERA ---
[id number]
--- NOTE | 2020-03-23 19:48 | Magnetic Resonance Report ---
MRI OF THE BRAIN WITHOUT CONTRAST CLINICAL HISTORY: Possible acute stroke. Confusion following cardiac catheterization. Headache. COMPARISON STUDY: Noncontrast head CT dated 03/23/2010 FINDINGS: Sagittal T1, axial diffusion, proton density and T2 weighted axial, coronal FLAIR, and axial T1-weigh leno images were acquired. No intra or extra-axial mass lesions are visualized There is a 5 cm focus of restricted water diffusion involving the right frontal lobe and insular alena ex. There is also a tiny focus of acute water diffusion within the left frontal lobe as well as an ad ditional tiny focus of restricted water diffusion in or adjacent to the left caudate. The findings ar e consistent with acute/subacute infarcts. There is no evidence of ventricular dilatation. Proton density T2-weighted and FLAIR images reveal moderate foci of increased T2 signal within the wh ite matter, likely on a small vessel basis. There is also increased T2 and FLAIR signal corresponding to the patient's right frontal lobe infarct. There are no abnormal flow voids. IMPRESSION: 1. 5 cm acute/subacute infarct involving the right frontal lobe and insular cortex 2. Additional tiny tiny acute/subacute infarcts involving the left frontal lobe and left caudate 3. No MRI evidence of acute hemorrhage ACT 112: Negative or not required by law. Electronically signed by: Valdo Jaimes M.D. 03/23/2020 7:47 PM
[2020-03-23] MEDS: PRAVASTATIN SOD 40 MG TAB PO SCH (20:41)
[2020-03-23 20:52] LABS: Appearance Urine Clear (Clear); Bilirubin Urine Negative (Negative); Blood Urine Negative (Negative); Color Urine Yellow; Glucose Urine UA Negative (Negative); Ketones Urine Negative (Negative); Leukocyte Esterase Urine Trace (Negative); Nitrite Urine Negative (Negative); Protein Urine Negative (Negative); Specific Gravity Urine > 1.045 (1.000-1.030); Urobilinogen Urine Negative (Negative)
[2020-03-23 21:00] LABS: Bacteria Urine Automated Negative (Negative); Cast Urine Automated 0 /lpf (0-5); RBC Urine Automated 0-4 /hpf (0-4)
[2020-03-23] MEDS ORDERED: ENOXAPARIN INJ 40 MG/0.4 ML SYR SQ SCH (21:00)
[2020-03-24] MEDS: LEVOTHYROXINE SODIUM 125 MCG TABLET PO SCH (05:51)
[2020-03-24 06:05] LABS: Basophils # (auto) 0.02 K/uL (0-0.2); Basophils % (auto) 0.3 %; Eosinophils # (auto) 0.21 K/uL (0-0.5); Eosinophils % (auto) 3.6 %; Hematocrit (blood only) 38.8 % (37-47); Hemoglobin 12.6 g/dL (12.0-16.0); Immature Granulocytes # (auto) 0.01 K/uL (0.00-0.02); Immature Granulocytes % (auto) 0.2 %; Lymphocytes # (auto) 1.47 K/uL (1.2-3.4); Lymphocytes % (auto) 25.2 %; Mean Corpuscular Hgb Conc 32.5 g/dL (32-36); Mean Corpuscular Volume 95.6 fL (80-100); Mean Platelet Volume 8.8 fL (7.4-10.4); Monocytes # (auto) 0.64 K/uL (0.11-0.59); Neutrophils # (auto) 3.49 K/uL (1.4-6.5); Neutrophils % (auto) 59.7 %; Platelet Count 239 K/uL (130-400); RDW Coefficient of Variation 13.5 % (11.5-14.5); RDW Standard Deviation 47.1 fL (36.4-46.3); Red Blood Count 4.06 M/uL (4.2-5.4); White Blood Count 5.84 K/uL (4.8-10.8)
[2020-03-24 06:38] LABS: BUN Creatinine Ratio 12.2 (10-20); Creatinine Clr Calc Pharmacy 44.5 ml/min; Est GFR (African American) 69.6; Est GFR (Non-African American) 60.1; Potassium 3.8 mmol/L (3.5-5.1)
[2020-03-24 06:48] LABS: Thyroid Stimulating Hormone 0.051 uIu/ml (0.300-4.500)
--- NOTE | 2020-03-24 07:14 | Electrocardiogram Report ---
Test Reason : Blood Pressure : / mmHG Vent. Rate : 071 BPM Atrial Rate : 071 BPM P-R Int : 126 ms QRS Dur : 072 ms QT Int : 386 ms P-R-T Axes : 019 027 078 degrees QTc Int : 419 ms Poor data quality, interpretation may be adversely affected Normal sinus rhythm Normal ECG When compared with ECG of 21-MAR-2015 16:02, QRS duration has decreased Confirmed by George Goodson ([id number]) on 03/24/2020 7:13:44 AM Referred By: REFERRED SELF Confirmed By:George Goodson
[2020-03-24 08:03] LABS: Estimated Average Glucose 120 mg/dl; Hemoglobin A1C 5.8 % (4.5-5.6)
[2020-03-24] MEDS: EZETIMIBE 10 MG TABLET PO SCH (08:09)
[2020-03-24] MEDS: ASPIRIN 81 MG ECTAB PO SCH (08:09)
[2020-03-24] MEDS: PANTOprazole 40 MG TAB PO SCH (08:09)
[2020-03-24] MEDS ORDERED: CLOPIDOGREL BISULFATE 75 MG TAB PO SCH (09:00)
--- NOTE | 2020-03-24 09:13 | Neurology Consultation ---
Date of Consultation March 24, 2020 Assessment & Plan (1) Acute CVA (cerebrovascular accident): (2) Subclavian artery stenosis: (3) Severe aortic valve stenosis: (4) Vertebral artery stenosis: Patient underwent cardiac catheterization procedure March 22. This was uneventful but she had confusion which was new for her yesterday. The patient denies it but her friend astutely picked it up. She had continued confusion March 23 and was found to have a 5 centimeter ( medium) wedge shaped right frontal acute stroke as well as 2 tiny left sided acute strokes. she was already on 81 milligram aspirin tablet daily. The etiology of these strokes are likely embolic from either the aortic valve (or proximal aortic arch). Since the strokes were bilateral, they could not originate from a single carotid or subclavian vessel. Echocardiogram was otherwise unremarkable for any other cardiac anomaly. CT angiography of the head was unremarkable otherwise. CT angiography of the neck showed plaque in the carotid arteries and stenosis in the vertebral arteries. She has other risk factors for stroke including hypertension. Currently she is hypotensive. The patient has mild old cerebral ischemia diffusely. Recommendations: 1. continue statin at the current dose as her lipid profile is unremarkable. 2. do not over correct blood pressure, as hypotension could lead to further infarct. 3. Typically, an embolic stroke would be treated with an anticoagulant. I would check with Cardiology to see if they agree with this, as well as the specific anticoagulant and dose given her cardiac condition. Otherwise, she could remain on Plavix alone instead of aspirin in addition to the anticoagulant. overall I spent a total of 70 minutes with this case including review of records, review of MRI films, direct evaluation the patient at bedside, and discussing the case with the patient and RN at bedside as well as Dr. Billy including differential diagnosis and treatment options. History of Present Illness Reason for Consultation: Patient is a 75-year-old who I was asked to see at the request of Dr. Paulino for neurologic consultation regarding stroke Requesting Physician: Dr. Paulino Attending Physician: Karol Paulino MD History of Present Illness this patient has a longstanding history of cardiac issues including severe aortic stenosis, coronary artery disease, post 2 MIs with stents in 2012, diastolic heart failure, post left carotid endarterectomy 10 years ago.She also has had right carotid stenting. There is a remote history of stroke in the past no details regarding this. Patient underwent cardiac catheterization procedure March 22. Prior to this she was in her usual state of and there was no issue of confusion. She was discharged from the procedure at 1330 in good condition. Friend picked her took her home. Friend wondered if the patient was a little confused in trying to get car. Patient does not think she was confused. 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 She denied any headaches, pain, weakness, numbness this, speech problems, confusion, lightheadedness, or vision problems. She went to bed around 0100 on March 23 (as usual ). She remembers getting up in the morning thinks she got up at 5 o'clock to go to hospital (She is confusing getting up March 22 with March 23). Her friend apparently went to check on her about 8 o'clock in the morning March 23 felt the patient was confused. She arrived to the emergency room at 1102 on March 23, with a temperature 36.8, pulse 90 and regular, respiratory rate 16, blood pressure 96/52, and O2 saturation 96 percent no confusion or other mental status change was noted by the emergency room physician. Patient herself denied confusion. No focal abnormalities were noted on exam. CBC and Chem profile were unremarkable. Urinalysis was unremarkable. CT scan of the head showed a 5 centimeter right frontal subacute stroke. CT angiography of the head was unremarkable. CT angiography of the neck revealed carotid plaque, 50 percent stenosis of the origin of the right vertebral, and some high-grade stenosis of the proximal left subclavian and 60 percent stenosis in the right subclavian. CTA of the chest was Unremarkable. MRI of the brain showed 5 centimeter acute right frontal/ insular cortex stroke but there were additional tiny strokes in the left frontal and left caudate reg ions. Hemoglobin A1c was 5.8. Triglycerides 188 and cholesterol 145. CBC and Chem profile today were unremarkable. TSH was 0.051. Blood pressure this morning was 129/53. She denies pain, headache, confusion, vision problems, speech issues, balance problems, weakness, numbness, or incontinence of urine. Allergies Allergy/AdvReac Type Severity Reaction Status Date / Time morphine Allergy Unknown SHORTNESS Verified 03/23/20 11:49 OF BREATH simvastatin Allergy Unknown Verified 03/23/20 11:49 Home Medications Home Medications Medication Instructions Recorded Confirmed Type albuterol sulfate 90 mcg INHALATION UD PRN 03/23/20 03/23/20 History alprazolam 0.25 mg PO BID PRN 03/23/20 03/23/20 History aspirin [Aspirin Low Dose] 81 mg PO DAILY 03/23/20 03/23/20 History coenzyme Q10 [CoQ-10] 0 mg PO BID 03/23/20 03/23/20 History ezetimibe 0 mg PO DAILY 03/23/20 03/23/20 History furosemide 20 mg PO UD 03/23/20 03/23/20 History levothyroxine 125 mcg PO QAM 03/23/20 03/23/20 History meloxicam 7.5 - 15 mg PO UD PRN 03/23/20 03/23/20 History metoprolol succinate 0 mg PO BID 03/23/20 03/23/20 History nitroglycerin 0.4 mg SUBLINGUAL UD PRN 03/23/20 03/23/20 History oxybutynin chloride 10 mg PO DAILY PRN 03/23/20 03/23/20 History pantoprazole 20 mg PO DAILY 03/23/20 03/23/20 History pravastatin 40 mg PO HS 03/23/20 03/23/20 History prednisone 20 mg PO UD 03/23/20 03/23/20 History quinapril 10 mg PO DAILY 03/23/20 03/23/20 History Patient History Medical History CAD (coronary artery disease), [place] coronary artery Carotid artery stenosis Chronic diastolic CHF (congestive heart failure) DJD (degenerative joint disease) (Acute) GERD (gastroesophageal reflux disease) History of CVA (cerebrovascular accident) History of right common carotid artery stent placement HTN (hypertension), benign Hx of myocardial infarction Hyperlipidemia Hypothyroidism Severe aortic valve stenosis Subclavian artery stenosis Vertebral artery stenosis Surgical History H/O carotid endarterectomy History of hysterectomy History of thyroidectomy, subtotal Hx of BSO (bilateral salpingo-oophorectomy) Hx of cardiac catheterization Family History Father , age 85 of prostate cancer Coronary heart disease Myocardial infarction, Onset Age: 41 of an DC at age 41 Prostate cancer Mother , age 94 with liver cancer No problems noted. 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 Other Information That Helps Us Care for You: No Feels Safe at Home: Yes Safety Concerns: Feels Safe At This Time Review of Systems Constitutional: no fever, no fatigue and no weakness Eyes: no diplopia, no eye pain and no worsening vision Ear, Nose, Mouth, Throat: no ear pain, no tinnitus, no hearing loss, no dizziness, no snoring, no hoarseness and no dysphagia Respiratory: no cough and no dyspnea Cardiovascular: no chest pain, no palpitations and no lightheadedness Gastrointestinal: no abdominal pain, no nausea and no vomiting Genitourinary: no dysuria, no urinary frequency and no urinary incontinence Musculoskeletal: no back pain, no neck pain, no radicular pain, no joint pain and no myalgia Integumentary: no rash and no lesions Neurologic: no gait abnormality, no localized weakness, no generalized weakness, no tingling, no numbness, no tremor(s), no abnormal movements, no headache(s), no abnormal speech, no confusion and no memory loss Psychiatric: no depression, no irritability, no anxiety, no difficulty concentrating, no confusion and no hallucinations Endocrine: no fatigue and no flushing Hematologic / Lymphatic: no easy bleeding and no easy bruising Allergy / Immunological: no urticaria and no problem reported Exam (Neuro) Physical Exam: The patient is right-handed. The patient is awake, alert, and attentive. Speech is normal without any aphasia or dysarthria. She can name objects, repeat phrases, and has normal spontaneous speech. Mentation and thought processes seem intact to conversation with orientation to person, place and time, and normal fund of knowledge. Attention and concentration are normal. Mood and affect are normal and appropriate. General appearance and grooming are normal. Short and long-term memory are seemingly intact but I believe she mixes fax up for events recently. Pupils are 4 mm bilaterally and reactive to light. Extraocular eye muscles are intact without nystagmus. Visual acuity and visual lewis seem normal grossly to confrontation. There are no deficits to sensation in the face in all 3 distributions of the fifth cranial nerve bilaterally. Corneal reflexes are positive bilaterally. Facial strength and symmetry was normal bilaterally. Hearing seems normal to whisper and finger rub bilaterally. Palate moves well without asymmetry. There is normal sternocleidomastoid and trapezius (shoulder shrug) strength bilaterally. Tongue is midline with good strength bilaterally. Neck has a full range of motion without discomfort. There are no cervical bruits bilaterally. There are no cranial or ocular bruits. Cervical, thoracic, and lumbar spine are nontender to palpation. Gait is narrow based, with good arm swing, turns, and stance. With outstretched arms there is no drift. There are no resting, postural, or action tremors. There is no ataxia with finger to nose testing. There is good facility in the hands. No other abnormal involuntary movements are noted. 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 Motor strength is 5/5 diffusely in the legs bilaterally including hip flexors, quadriceps, hamstrings, gastrocnemius, tibialis anterior, tibialis posterior, and Peroneii muscles. Toe extensors are normal and there is good bulk in the extensor digitorum brevis muscles bilaterally. The limbs have good tone without rigidity or spasticity. There is no atrophy noted in the muscles. Muscle bulk is normal, there is no tenderness to palpation, no myotonia to percussion, and no fasciculations seen. Sensory examination is intact to touch and pin throughout all 4 limbs diffusely. Reflexes are 2/4 in the biceps, triceps, brachioradialis, quadriceps, and Achilles tendons bilaterally. There is no clonus bilaterally. Toes are downgoing with plantar stimulation bilaterally. Peripheral pulses are present and of normal quality distally in all 4 limbs. There is no peripheral edema noted in the limbs. Results & Data ([facility]) Vital Signs (Past 12 Hours) Vital Signs Temp Pulse Pulse Pulse Resp BP Pulse Ox 03/24/20 08:09 86 129/53 L 03/24/20 07:32 36.6 C 87 16 89/52 L 94 03/24/20 07:18 74 03/24/20 03:54 37.0 C 101 H 19 98/54 L 100 03/24/20 00:00 37.1 C 84 17 104/66 94 03/23/20 23:09 86 Diagnostic Findings MRI OF THE BRAIN WITHOUT CONTRAST CLINICAL HISTORY: Possible acute stroke. Confusion following cardiac catheterization. Headache. COMPARISON STUDY: Noncontrast head CT dated 03/23/2010 FINDINGS: Sagittal T1, axial diffusion, proton density and T2 weighted axial, coronal F LAIR, and axial T1-weighted images were acquired. No intra or extra-axial mass lesions are visualized There is a 5 cm focus of restricted water diffusion involving the right frontal lobe and insular cortex. There is also a tiny focus of acute water diffusion within the left frontal lobe as well as an additional tiny focus of restricted water diffusion in or adjacent to the left caudate. The findings are consistent with acute/subacute infarcts. There is no evidence of ventricular dilatation. Proton density T2-weighted and FLAIR images reveal moderate foci of increased T2 signal within the white matter, likely on a small vessel basis. There is also increased T2 and FLAIR signal corresponding to the patient's right frontal lobe infarct. There are no abnormal flow voids. IMPRESSION: 1. 5 cm acute/subacute infarct involving the right frontal lobe and insular cortex 2. Additional tiny tiny acute/subacute infarcts involving the left frontal lobe and left caudate 3. No MRI evidence of acute hemorrhage ACT 112: Negative or not required by law. Electronically signed by: Valdo Jaimes M.D. 03/23/2020 7:47 PM PG Care Time/CCT Total # of Minutes Spent Total Time Spent with Patient: Total time spent is greater than 50% in coordination of care (as documented) at patient's floor/unit and/or counseling patient: Coding Level of Care Code 98248 Initial Inpt Care Lvl 3 Diagnoses Acute CVA (cerebrovascular accident) I63.9 Subclavian artery stenosis I77.1 Severe aortic valve stenosis I35.0 Vertebral artery stenosis I65.09 Time Spent (min) 70
--- NOTE | 2020-03-24 21:36 | Hospitalist Progress Note ---
Date of Service March 24, 2020 Assessment & Plan (1) Acute CVA (cerebrovascular accident): Likely embolic stroke event in setting of recent heart cath. b/l strokes on MRI. fortunately no deficits today. spoke with neurology - for secondary prevention start eliquis 5mg BID and continue aspirin. d/c plavix. cont pravastatin and zetia. PT, OT, speech, neuro evals appreciated. watch overnight - if she does well can likely d/c home tomorrow. (2) Severe aortic valve stenosis: Was being sent to [facility] for TAVR eval f/u Dr Carrasco as outpatient (3) CAD (coronary artery disease), [place] coronary artery: With known severe single-vessel disease with stents patent on cardiac catheterization on 03/22 She has a history of 2 drug-eluting stents to the proximal and mid circumflex in 09/2013 Continue aspirin Continue pravastatin as she cannot tolerate more intense statins Continue Zetia [employer] metoprolol and lisinopril for permissive hypertension -- can resume tomorrow if Cr stable, etc (4) Chronic diastolic CHF (congestive heart failure): compensated (5) Carotid artery stenosis: Status post left carotid endarterectomy and right carotid stent Continue aspirin and statin Neck CTA noted (6) Subclavian artery stenosis: With 60% stenosis of the right proximal subclavian artery and high-grade stenosis of the left subclavian artery seen on CT angiogram of the neck. Clearly has symptoms especially left hand. Continue antiplatelet therapy and statin therapy as above. (7) HTN (hypertension), benign: Permissive hypertension and holding metoprolol and CORINA as noted above. (8) Hyperlipidemia: Continue pravastatin, Zetia LDL today 72 (9) Vertebral artery stenosis: Noted on CT angiogram of the neck with high-grade stenosis of the left vertebral artery and 50% stenosis of the origin of the right vertebral artery. asa statin (10) GERD (gastroesophageal reflux disease): Continue PPI (11) History of CVA (cerebrovascular accident): Previous stroke with left sided facial droop residual. Now b/l embolic strokes as noted above. (12) Hypothyroidism: Continue levothyroxine from home TSH wnl today (13) DVT prophylaxis: d/c lovenox eliquis BID updated daughter this evening hopefully d/c home tomorrow Admission and Anticipated Discharge Date Admission Date: March 23, 2020 Subjective patient feeling well no further confusion denies dysarthria, aphasia, dysphagia, focal motor weakness, numbness (except left hand - chronic) tele overnight wnl no cp, no dyspnea Review of Systems Constitutional: no fever Respiratory: no cough and no dyspnea Cardiovascular: no chest pain Gastrointestinal: no abdominal pain, no nausea and no vomiting Physical Exam Constitutional: well developed and well nourished; no acute distress and no altered mental status ENMT: external ear and nose normal, oropharynx normal Respiratory: normal respiratory effort, lungs clear to auscultation Cardiovascular: Rate/Rhythm: regular rate and regular rhythm Heart Sounds: normal S1, normal S2 and + murmur (2/6 systolic RUSB/apex) Vessels: posterior tibial pulses present, dorsalis pedis pulses present and radial pulses present (decreased on left, 1+; hand cool to touch; right 2+, warm hand); no JVD Extremities: + edema Gastrointestinal (Abdomen): normal bowel sounds, soft, nontender, no hepatosplenomegaly Neurologic: moves all extremities; no focal motor deficits Speech / Cognition: normal speech, no expressive aphasia and no receptive aphasia Motor/Sensory: no pronator drift Psychiatric: A+Ox3, euthymic affect Results & Data Results & Data ([facility]) Vital Signs (Past 12 Hours) Vital Signs Temp Pulse Pulse Resp BP Pulse Ox 03/24/20 19:14 36.7 C 93 H 18 116/73 98 03/24/20 16:02 36.9 C 87 19 115/72 94 03/24/20 15:58 84 03/24/20 11:38 36.4 C L 93 H 18 124/72 92 Laboratory Results Laboratory Results - last 24 hr 03/23/20 03/23/20 03/24/20 11:40 22:32 05:44 WBC 5.84 RBC 4.06 L Hgb 12.6 Hct 38.8 MCV 95.6 MCH 31.0 MCHC 32.5 RDW Std Deviation 47.1 H RDW Coeff of [place] 13.5 Plt Count 239 MPV 8.8 Immature Gran % (Auto) 0.2 Neut % (Auto) 59.7 Lymph % (Auto) 25.2 [place] % (Auto) 11.0 Eos % (Auto) 3.6 Baso % (Auto) 0.3 Neut # (Auto) 3.49 Lymph # (Auto) 1.47 [place] # (Auto) 0.64 H Eos # (Auto) 0.21 Baso # (Auto) 0.02 Immature Gran # (Auto) 0.01 Sodium Potassium Chloride Carbon Dioxide Anion Gap BUN Creatinine Est Cr Clr Drug Dosing Est GFR ( Amer) Est GFR (Non-Af Amer) BUN/Creatinine Ratio Glucose Estimat Average Glucose 120 Hemoglobin A1c 5.8 H Calcium Troponin I 0.030 Triglycerides Cholesterol LDL Cholesterol, Calc VLDL Cholesterol, Calc HDL Cholesterol Cholesterol/HDL Ratio TSH 03/24/20 05:44 WBC RBC Hgb Hct MCV MCH MCHC RDW Std Deviation RDW Coeff of [place] Plt Count MPV Immature Gran % (Auto) Neut % (Auto) Lymph % (Auto) [place] % (Auto) Eos % (Auto) Baso % (Auto) Neut # (Auto) Lymph # (Auto) [place] # (Auto) Eos # (Auto) Baso # (Auto) Immature Gran # (Auto) Sodium 140 Potassium 3.8 Chloride 107 Carbon Dioxide 26 Anion Gap 6.0 BUN 11 Creatinine 0.92 Est Cr Clr Drug Dosing 44.5 Est GFR ( Amer) 69.6 Est GFR (Non-Af Amer) 60.1 BUN/Creatinine Ratio 12.2 Glucose 87 Estimat Average Glucose Hemoglobin A1c Calcium 9.0 Troponin I Triglycerides 188 H Cholesterol 145 LDL Cholesterol, Calc 72 VLDL Cholesterol, Calc 38 HDL Cholesterol 35 Cholesterol/HDL Ratio 4 TSH 0.051 L PG Care Time/CCT Total # of Minutes Spent Total Time Spent with Patient: Total time spent is greater than 50% in coordination of care (as documented) at patient's floor/unit and/or counseling patient: Coding Level of Care Code 62887 Subseq Hosp Care Lvl 3 Diagnoses Acute CVA (cerebrovascular accident) I63.9 Severe aortic valve stenosis I35.0 CAD (coronary artery disease), [place] coronary artery I25.10 Chronic diastolic CHF (congestive heart failure) I50.32 Carotid artery stenosis I65.29 Subclavian artery stenosis I77.1 HTN (hypertension), benign I10 Hyperlipidemia E78.5 Vertebral artery stenosis I65.09 GERD (gastroesophageal reflux disease) K21.9 History of CVA (cerebrovascular accident) Z86.73 Hypothyroidism E03.9 DVT prophylaxis Z29.9
[2020-03-24] MEDS: PRAVASTATIN SOD 40 MG TAB PO SCH (21:50)
[2020-03-24] MEDS: APIXABAN 5 MG TABLET PO SCH (21:50)
[2020-03-25] MEDS: LEVOTHYROXINE SODIUM 125 MCG TABLET PO SCH (06:15)
[2020-03-25 06:17] LABS: Creatinine Clr Calc Pharmacy 51.2 ml/min; Est GFR (African American) 82.4; Est GFR (Non-African American) 71.1
[2020-03-25] MEDS: PANTOprazole 40 MG TAB PO SCH (08:05)
[2020-03-25] MEDS: APIXABAN 5 MG TABLET PO SCH (08:05)
[2020-03-25] MEDS: EZETIMIBE 10 MG TABLET PO SCH (08:06)
[2020-03-25] MEDS: ASPIRIN 81 MG ECTAB PO SCH (08:06)
[2020-03-25] MEDS ORDERED: METOPROLOL SUCC 50MG EXT REL TAB PO ONE (14:30)
--- NOTE | 2020-03-25 14:46 | CT Scan Report ---
CT head/brain wo con CLINICAL HISTORY: fall, head injury COMPARISON STUDY: Noncontrast head CT dated 03/23/2020, MRI the brain dated 03/23/2020 TECHNIQUE: Axial CT of the brain is performed from the vertex to the skull base. IV contrast was not administered for this examination. A dose lowering technique was utilized adhering to the principles of ALARA. CT DOSE: 614.27 mGy.cm FINDINGS: There is a subacute right frontal lobe infarct. There is no evidence of hemorrhage. There is mild sec ondary mass effect with effacement of the right frontal cortical sulci. There are moderate white matter hypodensities likely on a small vessel basis. There is no evidence of pathologic ventricular dilatation. There is no evidence of acute sinusitis IMPRESSION: 1. Subacute right frontal lobe infarct 2. No evidence of acute hemorrhage ACT 112: Negative or not required by law. Electronically signed by: Valdo Jaimes M.D. 03/25/2020 2:45 PM
[2020-03-25] MEDS ORDERED: APIXABAN 2.5 MG TAB PO ONE (16:37)
[2020-03-25] MEDS ORDERED: APIXABAN 5 MG TABLET PO SCH (16:45)
[2020-03-25] MEDS ORDERED: STROKE PATIENT DISCHARGE STA (16:49)
--- NOTE | 2020-03-25 17:00 | Discharge Summary ---
Date of Service date of admission - March 23, 2020 date of discharge - March 25, 2020 Admission HPI Per Admitting Provider This patient is a 75-year-old female with a history of severe aortic stenosis, severe CAD status post BEAU X2 to the circumflex and 70% ostial small RCA stenosis, hyperlipidemia, HTN, s/p left carotid endarterectomy and right carotid stenting, severe bilateral subclavian artery stenosis rate greater than left, chronic diastolic CHF, GERD, history of CVA with carotid endarterectomy, hypothyroidism, who had a cardiac catheterization on 03/22 at this facility in preparation for TAVR evaluation. She was picked up by a friend at 1330 yesterday who took her home. When they got home, the friend noted that the patient appeared confused and did not want to get out of the car at first. She finally convinced her to get out of the car and dropped her off at home. This morning, the friend came to check on her at 8:00 in the morning and noted the patient continued to be confused and brought her to the ER. The patient reports she remembers getting home and feeding her cats. She did not eat dinner last night as she did not feel hungry. When she woke up this morning, she remembers thinking that she was at her daughter's house and still thinks that she was at her daughter's house at this point in time. She is now much less confused and her friend at the bedside reported to the ER PA that the patient was completely back to her baseline mental status in the ER. The patient reports a mild headache today, but denies numbness or tingling or weakness anywhere else. No difficulty with speech or word finding. She reports no difficulty with walking or loss of balance. She denies chest pains or shortness of breath. Here she was noted to have a subacute to acute appearing 5 cm right frontal CVA on noncontrast CT of the head. Because her last known well time was yesterday at 1330, she was not administered TPA. She has no other focal neurological deficits by history or on examination. She had a CT angiogram of the head and neck in the ER which showed right greater than left plaque of the bilateral carotid bulbs with prior carotid endarterectomy but no high-grade stenosis of the carotids, high-grade stenosis of the proximal left subclavian and vertebral arteries, and 60% stenosis of the proximal right subclavian artery as well as 50% narrowing at the origin of the right vertebral artery. CTA of the head showed no intraluminal thrombus or abrupt vessel cutoff, no intracranial aneurysm, and hypodensity in the right frontal lobe suggesting subacute to acute infarct. While she was still down in the ER after admission, the echocardiogram tech nician was performing her echocardiogram and had concern for possible aortic dissection. I ordered a stat CT angiogram of the chest with dissection protocol that was negative for aortic dissection. She will be admitted for likely acute ischemic CVA for further work-up. Principal Diagnosis embolic stroke Discharge Exam Constitutional well developed and well nourished; no acute distress and no altered mental status ENMT external ear and nose normal, oropharynx normal Respiratory normal respiratory effort, lungs clear to auscultation Cardiovascular Rate/Rhythm: regular rate and regular rhythm Heart Sounds: normal S1, normal S2 and + murmur (2/6 systolic RUSB/apex) Vessels: posterior tibial pulses present, dorsalis pedis pulses present and radial pulses present (decreased on left, 1+, with hand cool to touch; right 2+, warm hand); no JVD Extremities: no edema Gastrointestinal (Abdomen) normal bowel sounds, soft, nontender, no hepatosplenomegaly Musculoskeletal head - no signs of trauma. cervical spine - no tenderness to palpation. hips - b/l - no pain with active and passive ROM. Skin head - scalp w/o evidence of trauma; no bruising, deformity, etc Neurologic moves all extremities; no focal motor deficits Speech / Cognition: normal speech, no expressive aphasia and no receptive aphasia Motor/Sensory: no pronator drift no facial droop Psychiatric A+Ox3, euthymic affect Discharge Data Allergies Allergy/AdvReac Type Severity Reaction Status Date / Time morphine Allergy Unknown SHORTNESS Verified 03/23/20 11:49 OF BREATH simvastatin Allergy Unknown Verified 03/23/20 11:49 Consultations Neurology - Nils Napoles MD PT, OT, speech therapy Ordered Studies 03/23/20 CT angio head w con - IMPRESSION: 1. No intraluminal thrombus or abrupt vessel cut off identified. No intracranial aneurysm. 2. Hypodensity with loss of thorpe-white infiltration within the right frontal lobe, shown better on head CT. This suggests a subacute to acute infarct. 03/23/20 CT angio neck with con - IMPRESSION: 1. Mixed plaque of the bilateral carotid bulbs, right greater than left with prior right carotid endarterectomy. No high-grade stenosis of the carotid arteries. 2. High-grade stenosis of the proximal left subclavian and vertebral arteries. 3. Large calcified plaque at the proximal right subclavian artery results in approximately 60% stenosis. 4. At least 50% luminal narrowing at the origin of the right vertebral artery. 03/23/20 CT head/brain wo con - IMPRESSION: 1. Subacute 5 cm right frontal lobe infarct in the right MCA distribution. 2. No evidence of acute hemorrhage. 03/23/20 MR brain wo con - IMPRESSION: 1. 5 cm acute/subacute infarct involving the right frontal lobe and insular cortex 2. Additional tiny tiny acute/subacute infarcts involving the left frontal lobe and left caudate 3. No MRI evidence of acute hemorrhage 03/23/20 CT angio chest dissec wo/w con - IMPRESSION: 1. No evidence for aortic dissection or aneurysm. 2. Lungs are clear. 3. No evidence for pulmonary embolus. 03/25/20 CT head/brain wo con - IMPRESSION: 1. Subacute right frontal lobe infarct 2. No evidence of acute hemorrhage Echocardiogram - * EF 55-60% * no ASD; PFO not assessed * severe aortic stenosis (ANNABEL 0.57cm^2) * LV wall motion normal * grade 1 diastolic dysfunction Hospital Course (1) Acute CVA (cerebrovascular accident): Likely embolic stroke event in setting of recent heart cath. b/l strokes on MRI with largest area of stroke in the right frontal lobe, about 5cm in size. She had no deficits on physical exam during the stay and her confusion resolved. The night before discharge she had slipped entering the bathroom and apparently hit her head. She had no evidence of trauma to the head but [id number], in light of newly instituted eliquis on March 24, CT head was repeated on day of discharge (03/25/20). The repeat head CT did NOT show ICH. She was seen by Dr Nils Napoles from [facility]. He recommended starting anticoagulation given that the stroke was embolic in etiology. Thus, eliquis 5mg BID was initiated. She will continue on aspirin 81mg daily as well. Patient has severe PAD of numerous vessels as noted on CTA neck but these were not felt to be the cause of her stroke event. LDL was 72 on lipid profile this admission. She is intolerant of all statins except pravastatin. She will continue on pravastatin and zetia as previous. PT, OT, speech evaluations were completed and she will not need any therapy services post-d/c. (2) Severe aortic valve stenosis: Echo with severe , ANNABEL 0.57cm^2. Follows with Dr Nick Carrasco, [facility]. Prior to this stay arrangements were being made for TAVR evaluation at [facility]. In fact the recent heart catheterization was in preparation for TAVR. Patient was asked to f/u with Dr Carrasco as outpatient to continue this pursuit. (3) CAD (coronary artery disease), [place] coronary artery: With known severe single-vessel disease with stents patent on cardiac catheterization on 03/22/20. She has a history of 2 drug-eluting stents to the proximal and mid circumflex in 09/2013. Continue aspirin. Continue pravastatin as she cannot tolerate more intense statins. Continue Zetia. Continue metoprolol xl 50mg BID. CORINA held at discharge as BPs were normal or low-normal WITHOUT the CORINA. (4) Chronic diastolic CHF (congestive heart failure): compensated during the hospitalization. Continue metoprolol xl. Lasix prn. (5) Carotid artery stenosis: Status post left carotid endarterectomy and right carotid stent in the past. Continue aspirin and statin. See CTA neck results above. (6) Subclavian artery stenosis: With 60% stenosis of the right proximal subclavian artery and high-grade stenosis of the left subclavian artery seen on CT angiogram of the neck. Clearly has symptoms related to the subclavian stenosis especially the left hand (pain with activity, numbness, cool sensation, etc). Continue antiplatelet therapy and statin therapy as above. (7) HTN (hypertension), benign: Permissive hypertension was employed early in her stay due to the acute CVA. Metoprolol xl was resumed on day of discharge. CORINA was held as noted above. (8) Hyperlipidemia: Continue pravastatin, Zetia LDL 72 this admission HDL 35 (9) Vertebral artery stenosis: Noted on CT angiogram of the neck with high-grade stenosis of the left vertebral artery and 50% stenosis of the origin of the right vertebral artery. She is at risk of subclavian steal syndrome given the posterior circulation atherosclerotic disease and the high-grade subclavian stenosis. (10) GERD (gastroesophageal reflux disease): Continue PPI (11) History of CVA (cerebrovascular accident): Previous stroke with left sided facial droop residual. Now b/l embolic strokes as noted above. (12) Hypothyroidism: Continue levothyroxine. TSH was 0.05. Would recommend repeat TSH as outpatient. If TSH continues to remain low consider decrease in levothyroxine dose. (13) Fall: Patient was ambulating to the bathroom and slipped in the doorway, falling to the ground. She apparently hit her posterior head. CT head following this event did NOT show ICH or other pathology (except previously identified right frontal lobe stroke). She had no other signs of injury. No presyncope or chest pain/dyspnea prior to the fall. Fall was accidental. Total Time Total Time Spent Total Time Spent (In Minutes): 45 Total Time Includes: Examination of the Patient, Discharge Planning, Medication Reconciliation and Communication With Other Providers Discharge Plan Discharge Items Patient Disposition: Home - Self-Care Reason For Visit: Confusion Discharge Diagnosis: Confusion due to stroke -- confusion now resolved. Neurology advising blood thinners (eliquis). Condition on Discharge: Good Activity: As commented below Activity Comment: gradually increase your activities over the next 7-10 days Driving/Machine Use: Resume 3 days after discharge Non-emergency contact: Primary Care Provider and [employer] D[employer] Operator Call non-emergency contact if: you have any medication questions, your symptoms worsen and you have a fever Follow-up/Referrals: Nick Carrasco, [Primary Care Provider] - (see Dr Carrasco THIS WEEK ) Diet: Heart Healthy Addtl Attending Provider Instructions: You were admitted to the hospital because of confusion. An MRI of the brain showed that you had had a stroke. There were several areas of stroke with the largest one being in the front of the brain on the right side. Fortunately the stroke did not affect your speech, swallowing, or your ability to move your arms or legs. We repeated a CAT scan on 03/25/20 and this did NOT show any worsening of the stroke. It also did not show any blood. The neurologist with [facility], after consulting with the market risk specialist, is recommending that you take blood thinners to decrease your chances of a future stroke. Thus we are recommending ELIQUIS. This should be taken twice a day. First dose will be TONIGHT at home. Please also continue to take your aspirin 81mg daily. The left hand symptoms that you get are not from the stroke but a severe blockage in the artery that supplies blood to the left arm. Try to avoid over- use of the left arm. Doing so will cause pain, numbness, cramps, etc. Follow-up -- 1. see Dr Carrasco this week to discuss referral to [facility] (regarding your aortic stenosis and potential for surgery) 2. see your family doctor within 1 week Stroke instructions -- Risk Factors for Stroke: You can reduce your chances of stroke by working with your medical provider to adopt a healthy lifestyle. Some specific ways to lower your chance of stroke are: * If you are a smoker, now is the time to stop smoking cigarettes * If you are diabetic, improve the control of your blood sugars * Avoid excessive amounts of alcohol * Control high blood pressure * Lose weight if you are overweight * Be sure to lead an active lifestyle * Eat a healthy diet low in salt, cholesterol and fat You should know about other risk factors for stroke that you are unable to control. These include: * Age 55 years or older * Male gender * Certain racial groups: , or / * Family History of Stroke, Mini stroke or Heart Attack * Sickle Cell Disease Who to Call and When: Medical Emergencies: Call 911 immediately if you experience any of the following warning signs and symptoms of Stroke: * Sudden numbness or weakness of the face, arm or leg, especially on one side of the body * Sudden confusion, trouble speaking or understanding * Sudden trouble seeing in one or both eyes * Sudden trouble walking, dizziness, loss of balance or coordination * Sudden severe headache with no cause Do not delay calling 911 if you experience any warning signs or symptoms of a stroke. Delay in seeking medical attention may affect what treatments can be given to you. . Blood thinner instructions - We have started you on blood thinners, also known as "anticoagulants." Anticoagulants will thin your blood to help prevent new clots. Your blood thinner is "eliquis." * You should take your medication exactly as directed. * Never skip a dose. * Never take a double dose. If you miss a dose, take it as soon as you remember. Call your Primary Care doctor or [employer] D[employer] Operator if you experience any of the following: * Chest Pain * Sudden Shortness of Breath * Rapid or pounding heart beat * Fainting * Dizziness * Cough with blood or bloody sputum * Sweating more than normal * Bruises * Heavy or uncontrolled bleeding * Blood in your urine, stool or vomit * Black or tarry stools * Heavy nosebleeds Pending Studies at Discharge: No Stand-Alone Forms: Medications to Prevent Stroke, [facility], Smoking Cessation Medications and DC Order Prescriptions: New Eliquis 5 mg Tablet 5 mg PO BID Qty: 60 RF: 5 Continued oxybutynin chloride 10 mg tablet extended release 24hr 10 mg PO DAILY PRN (Reason: urinary symptons) RF: 0 aspirin [Aspirin Low Dose] 81 mg Tablet,Delayed Release (Dr/Ec) 81 mg PO DAILY RF: 0 levothyroxine 125 mcg tablet 125 mcg PO QAM RF: 0 furosemide 20 mg tablet 20 mg PO UD RF: 0 pravastatin 40 mg tablet 40 mg PO HS RF: 0 pantoprazole 20 mg tablet,delayed release (DR/EC) 20 mg PO DAILY RF: 0 alprazolam 0.25 mg tablet 0.25 mg PO BID PRN (Reason: Anxiety) RF: 0 nitroglycerin 0.4 mg tablet, sublingual 0.4 mg sublingual UD PRN (Reason: Chest Pain) RF: 0 albuterol sulfate 90 mcg/actuation HFA aerosol inhaler 90 mcg INHALATION UD PRN (Reason: Wheezing) RF: 0 ezetimibe 10 mg tablet 0 mg PO DAILY RF: 0 coenzyme Q10 [CoQ-10] 100 mg Capsule 0 mg PO BID RF: 0 Changed metoprolol succinate 50 mg tablet extended release 24 hr 50 mg PO BID Qty: 60 RF: 0 Discontinued prednisone 20 mg tablet 20 mg PO UD RF: 0 meloxicam 7.5 mg tablet 7.5 - 15 mg PO UD PRN (Reason: Pain) RF: 0 quinapril 10 mg tablet 10 mg PO DAILY RF: 0 Discharge Orders: Discharge Order (Routine); Ordered 03/25/20 Ordered By: Shaggy Billy Admission Data Admit Date/Time: 03/23/20 14:39 Attending Provider: Shaggy Billy Admit Provider: Karol Paulino Primary Care Provider: Nick Carrasco Other Providers: Fawad Napoles ; Karol Paulino ; [facility] Other Interventions: Discharge Summary Assessment (RN) Last Done: 03/25/20 16:53 DC Date/Time DO NOT enter until pt leaves facility: 03/25/20 18:15 Coding Level of Care Code D/C Day Management >30 mins Diagnoses Acute CVA (cerebrovascular accident) I63.9 Severe aortic valve stenosis I35.0 CAD (coronary artery disease), [place] coronary artery I25.10 Chronic diastolic CHF (congestive heart failure) I50.32 Carotid artery stenosis I65.29 Subclavian artery stenosis I77.1 HTN (hypertension), benign I10 Hyperlipidemia E78.5 Vertebral artery stenosis I65.09 GERD (gastroesophageal reflux disease) K21.9 History of CVA (cerebrovascular accident) Z86.73 Hypothyroidism E03.9 Fall W19.XXXA
--- NOTE | 2020-03-25 17:09 | Pharmacy Report ---
Pharmacist Stroke Counseling - Date of Service March 25, 2020 - Scope: Pharmacy has been consulted to provide medication discharge counseling for this patient admitted with ischemic stroke as per the Pharmacist Discharge Counseling for Stroke Patients Protocol. - Medications on Discharge: Home Medications Medication Instructions Recorded Confirmed albuterol sulfate 90 mcg INHALATION UD PRN 03/23/20 03/23/20 alprazolam 0.25 mg PO BID PRN 03/23/20 03/23/20 aspirin [Aspirin Low Dose] 81 mg PO DAILY 03/23/20 03/23/20 coenzyme Q10 [CoQ-10] 0 mg PO BID 03/23/20 03/23/20 ezetimibe 0 mg PO DAILY 03/23/20 03/23/20 furosemide 20 mg PO UD 03/23/20 03/23/20 levothyroxine 125 mcg PO QAM 03/23/20 03/23/20 nitroglycerin 0.4 mg SUBLINGUAL UD PRN 03/23/20 03/23/20 oxybutynin chloride 10 mg PO DAILY PRN 03/23/20 03/23/20 pantoprazole 20 mg PO DAILY 03/23/20 03/23/20 pravastatin 40 mg PO HS 03/23/20 03/23/20 New Rx's Medication Instructions Recorded apixaban [Eliquis] 5 mg PO BID #60 tab 03/25/20 metoprolol succinate 50 mg PO BID #60 tab 03/25/20 - Action: The above medications, specifically ones for stroke treatment/prophylaxis, have been reviewed in detail with the patient and/or patient guest experience representative(s) prior to discharge. This includes indication, common adverse reactions, drug interactions, and medication administration. Medication counseling has been employed using the teach-back method to ensure understanding. - Outcome: The patient and/or patient guest experience representative(s) have demonstrated understanding of the medications. Additional comments: Thank you for allowing pharmacy to be involved in the care of this patient. Please call [phone] with any additional questions
== END 2020-03-25 18:15 | disposition home or self-care (01) | DRG 65 ==
LOC: ED 11:01 → 2S 14:39 → SUATTDRO 14:39 → 2S 15:17

== ENCOUNTER 2022-04-27 19:47 | Observation (INO) ==
[2022-04-27 20:59] LABS: Appearance Urine Clear (Clear); Bacteria Urine Automated Negative (Negative); Bilirubin Urine Negative (Negative); Blood Urine Negative (Negative); Cast Urine Automated 0 /lpf (0-5); Color Urine Yellow; Glucose Urine UA Negative (Negative); Ketones Urine Trace (Negative); Leukocyte Esterase Urine Trace (Negative); Nitrite Urine Negative (Negative); Protein Urine Negative (Negative); RBC Urine Automated 0-4 /hpf (0-4); Specific Gravity Urine 1.015 (1.000-1.030); Urobilinogen Urine Negative (Negative)
[2022-04-27 21:07] LABS: Basophils # (auto) 0.06 K/uL (0-0.2); Basophils % (auto) 0.8 %; Eosinophils # (auto) 0.19 K/uL (0-0.50); Eosinophils % (auto) 2.6 %; Hematocrit (blood only) 43.2 % (34.1-44.9); Hemoglobin 14.4 g/dl (12.0-16.0); Immature Granulocytes # (auto) 0.01 K/uL (0.00-0.02); Immature Granulocytes % (auto) 0.1 %; Lymphocytes # (auto) 1.88 K/uL (1.2-3.4); Lymphocytes % (auto) 25.8 %; Mean Corpuscular Hemoglobin 31.6 pg (25.0-34.0); Mean Corpuscular Hgb Conc 33.3 g/dL (32.0-36.0); Mean Corpuscular Volume 94.7 fL (80.0-100.0); Mean Platelet Volume 9.1 fL (9.4-12.3); Monocytes # (auto) 0.76 K/uL (0.24-0.82); Monocytes % (auto) 10.4 %; Neutrophils # (auto) 4.39 K/uL (1.4-6.5); Neutrophils % (auto) 60.3 %; Partial Thromboplastin Ratio 1.1; Partial Thromboplastin Time 30.2 Seconds (21.0-31.0); Platelet Count 284 K/uL (130-400); Prothrombin Time 10.9 Seconds (9.0-12.0); RDW Coefficient of Variation 13.5 % (11.5-14.5); RDW Standard Deviation 47.2 fL (36.4-46.3); Red Blood Count 4.56 M/uL (3.93-5.22); White Blood Count 7.29 K/ul (4.8-10.8)
[2022-04-27 21:24] LABS: Albumin Globulin Ratio 1.5 (0.9-2); Albumin Level 4.5 gm/dl (3.4-5.0); BUN Creatinine Ratio 19.1 (10-20); Bilirubin,Total 0.6 mg/dl (0.2-1.0); Creatinine Clr Calc Pharmacy 37.2 ml/min; Est GFR (African American) 55.3 ml/min; Est GFR (Non-African American) 47.7 ml/min; Globulin 3.1 gm/dl (2.5-4.0); Magnesium 2.1 mg/dl (1.7-2.4); Potassium 4.2 mmol/L (3.5-5.1); Total Protein 7.6 gm/dl (6.0-8.3)
--- NOTE | 2022-04-27 22:36 | XRay Report ---
XR chest 1V portable CLINICAL HISTORY: ams TECHNIQUE: Single frontal radiograph of the chest was obtained. Comparison: Comparison is made to chest radiograph 01/05/2020 FINDINGS: No lines and tubes are seen. The cardiomediastinal silhouette is normal. The lungs are clear. No evid ence of pleural effusion or pneumothorax. IMPRESSION: No acute chest disease. ACT 112: Negative or not required by law. Electronically signed by: Evaristo Lake M.D. 04/27/2022 10:33 PM
--- NOTE | 2022-04-27 22:46 | CT Scan Report ---
CT head/brain wo con CLINICAL HISTORY: ams Technique: Contiguous axial CT images of the head were acquired from the base of the skull to the lynn petr without intravenous contrast administration. Images were viewed in brain, subdural and bone [facility] [place]. Automated dose lowering techniques and/or adjustment according to patient size were utilized for this exam. Comparison: Comparison is made to CT head 03/25/2020 Findings: Areas of decreased attenuation are present in the periventricular and subcortical white matter bilate rally consistent with small vessel ischemic disease. Generalized cerebral atrophy with commensurate e nlargement of the ventricles, sulci, and cisterns is also present. There is no acute intracranial hem orrhage or evidence of acute territorial infarction. No shift of the midline structures, mass effect, or extra-axial abnormalities are shown. Atherosclerotic calcifications are present in the intracran ial segments of the internal carotid arteries. Focal encephalomalacia is in the right frontal lobe. Imaged portions of the paranasal sinuses and mastoid air cells are clear. The orbits appear normal. There are no acute fractures of the calvaria or scalp swelling. Impression: No acute abnormalities are seen. Old encephalomalacia is compatible with chronic appearance of previo usly noted right frontal lobe infarct. ACT 112: Negative or not required by law. Electronically signed by: Evaristo Lake M.D. 04/27/2022 10:43 PM
--- NOTE | 2022-04-28 00:21 | Emergency Department Note ---
History of Present Illness General Chief complaint: Altered Mental Status Stated complaint: HALLUCINATIONS Time Seen by Provider: 04/27/22 21:46 History of Present Illness Maximum Pain Intensity: 2 This 77 yo presents to the ER complaining of hearing voices and having hallucinations and delusions for the past 2 weeks Location: Generalized Quality: Delusional Severity: Moderate Duration: Past 2 weeks Timing: Started 2 weeks ago Context: Family was concerned and brought the patient in Modifying factors: better with nothing; worse with nothing Patient states she thinks that she was hearing people upstairs and then she saw young people having conversations in front of her. Patient has called the scratcher before and had them investigate this. Patient today brought a knife as she thought someone was trying to attack her. Family was concerned and brought her here. Patient denies new medications, fever, chills, headache, neck stiffness, abdominal pain, chest pain or any other medical complaints. Her 's anniversary of him passing was 2 weeks ago. Daughter is present for this conversation. Daughter states this acute delusional state is new. Home Medications Medication Instructions Recorded Confirmed Type aspirin 81 mg tablet,delayed 81 mg PO DAILY 03/23/20 04/27/22 History release (Shelbie Low Dose Aspirin) furosemide 20 mg tablet 20 mg PO DAILY PRN Fluid Retention 03/23/20 04/27/22 History pravastatin 40 mg tablet 40 mg PO HS 03/23/20 04/27/22 History apixaban 5 mg tablet (Eliquis) 5 mg PO BID #60 tabs 03/25/20 04/27/22 Rx bupropion HCl 150 mg 24 hr tablet, 150 mg PO DAILY 10/23/20 04/27/22 History extended release acetaminophen 650 mg 1,300 mg PO Q8H PRN Pain 04/27/22 04/27/22 History tablet,extended release bupropion HCl 300 mg 24 hr tablet, 300 mg PO DAILY 04/27/22 04/27/22 History extended release metoprolol succinate 50 mg 50 mg PO HS 04/27/22 04/27/22 History tablet,extended release 24 hr quinapril 10 mg tablet 10 mg PO DAILY 04/27/22 04/27/22 History Allergies Allergy/AdvReac Type Severity Reaction Status Date / Time morphine Allergy Severe SHORTNESS Verified 04/27/22 23:13 OF BREATH simvastatin Allergy Unknown Unknown Verified 04/27/22 23:13 Past Med/Surg History Medical History (Updated 04/28/22 @ 02:00 by Camryn Granados PA-C) CAD (coronary artery disease), [place] coronary artery Carotid artery stenosis Chronic diastolic CHF (congestive heart failure) DJD (degenerative joint disease) GERD (gastroesophageal reflux disease) History of CVA (cerebrovascular accident) History of right common carotid artery stent placement HTN (hypertension), benign Hx of myocardial infarction Hyperlipidemia Hypothyroidism Severe aortic valve stenosis Subclavian artery stenosis Vertebral artery stenosis Surgical History H/O carotid endarterectomy History of hysterectomy History of thyroidectomy, subtotal Hx of BSO (bilateral salpingo-oophorectomy) Hx of cardiac catheterization Family History Father , age 85 of prostate cancer Coronary heart disease Myocardial infarction, Onset Age: 41 of an ND at age 41 Prostate cancer Mother , age 94 with liver cancer No problems noted. 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 Feels Safe at Home: Yes Assistive Devices: Denture - Upper, Denture - Lower and Glasses Review of Systems A total of 10 systems reviewed and were otherwise negative Physical Exam Vital Signs Vital Signs - 24 hr 04/27/22 19:55 04/27/22 21:58 04/27/22 23:30 Temperature 36.5 C Temperature Source Temporal Artery Scan Pulse Rate 76 72 Pulse Rate [Finger] 74 Respiratory Rate 16 18 19 Respiratory Effort / Characteristics Non-Labored Spontaneous Non-Labored Spontaneous Respiratory Depth Normal Normal Blood Pressure 152/86 H Blood Pressure [Right Arm] 150/77 H Blood Pressure Mean 108 Blood Pressure Mean [Right Arm] 101 Pulse Oximetry 94 97 94 Oxygen Delivery Method Room Air Room Air Room Air Sepsis Recent Fever Within 48 Hours No Sepsis New/Unexplained Change in Mental Status N/A Sepsis Action Taken by Nursing No Action Required VITALS: Vitals are noted on the nurse's note and reviewed by myself. Vital signs stable. GENERAL: Pleasant female answering questions appropriately, in no acute distress, nondiaphoretic, well-developed well-nourished. SKIN: The skin was without rashes, erythema, edema, or bruising. There is no tenting of the skin. Capillary reflex less than 2 seconds. HEAD: Normocephalic atraumatic. EARS: External auditory canals clear, EYES: Pupils equal round and reactive to light and accommodation. Conjunctivae without injection, sclerae without icterus. Extraocular movements intact. NOSE: Patent, turbinates without inflammation or discharge. MOUTH: Mucous membranes moist. Pharynx without erythema or exudate. Uvula midline. Airway patent. Tongue does not deviate. NECK: Supple without nuchal rigidity. No lymphadenopathy. No thyromegaly. Cervical spine is nontender. No JVD. HEART: Regular rate and rhythm LUNGS: Clear to auscultation bilaterally without wheezes, rales or rhonchi. No retractions or accessory muscle use. ABDOMEN: Positive bowel sounds x 4. Normal tympanic percussion. Soft, nontender, without masses or organomegaly. Alicia sign negative. No guarding or rebound tenderness. No CVA tenderness MUSCULOSKELETAL: No muscle atrophy, erythema, or edema noted. NEURO: Patient was alert and oriented to person place and time. Normal sensation to light and sharp touch. No focal neurological deficits. Medical Decision Making Medical Records Attestation: I reviewed the patient's medical records. Home Medications Current Medication List: was personally reviewed by me Laboratory Data Attestation: I reviewed the patient's lab results. Result diagrams: 04/27/22 20:30 04/27/22 20:30 Lab Results 04/27/22 04/27/22 04/27/22 Range/Units 20:30 20:30 20:30 WBC 7.29 (4.8-10.8) K/ul RBC 4.56 (3.93-5.22) M/uL Hgb 14.4 (12.0-16.0) g/dl Hct 43.2 (34.1-44.9) % MCV 94.7 (80.0-100.0) fL MCH 31.6 (25.0-34.0) pg MCHC 33.3 (32.0-36.0) g/dL RDW Std Deviation 47.2 H (36.4-46.3) fL RDW Coeff of [place] 13.5 (11.5-14.5) % Plt Count 284 (130-400) K/uL MPV 9.1 L (9.4-12.3) fL Immature Gran % (Auto) 0.1 % Neut % (Auto) 60.3 % Lymph % (Auto) 25.8 % Bryan % (Auto) 10.4 % Eos % (Auto) 2.6 % Baso % (Auto) 0.8 % Neut # (Auto) 4.39 (1.4-6.5) K/uL Lymph # (Auto) 1.88 (1.2-3.4) K/uL Bryan # (Auto) 0.76 (0.24-0.82) K/uL Eos # (Auto) 0.19 (0-0.50) K/uL Baso # (Auto) 0.06 (0-0.2) K/uL Immature Gran # (Auto) 0.01 (0.00-0.02) K/uL PT 10.9 (9.0-12.0) Seconds INR 1.0 (0.9-1.1) APTT 30.2 (21.0-31.0) Seconds PTT Ratio 1.1 Sodium 139 (136-145) mmol/L Potassium 4.2 (3.5-5.1) mmol/L Chloride 103 (98-107) mmol/L Carbon Dioxide 26 (21-32) mmol/L Anion Gap 10 (3-11) BUN 21 (6-23) mg/dl Creatinine 1.10 (0.6-1.2) mg/dl Est Cr Clr Drug Dosing 37.2 ml/min Est GFR ( Amer) 55.3 ml/min Est GFR (Non-Af Amer) 47.7 ml/min BUN/Creatinine Ratio 19.1 (10-20) Glucose 88 (70-99(Fasting)) mg/dl Calcium 10.0 (8.5-10.1) mg/dl Magnesium 2.1 (1.7-2.4) mg/dl Total Bilirubin 0.6 (0.2-1.0) mg/dl AST 22 (13-39) U/L ALT 18 (7-52) U/L Alkaline Phosphatase 65 (34-104) U/L Total Protein 7.6 (6.0-8.3) gm/dl Albumin 4.5 (3.4-5.0) gm/dl Globulin 3.1 (2.5-4.0) gm/dl Albumin/Globulin Ratio 1.5 (0.9-2) TSH (0.300-4.500) uIu/ml Urine Color Urine Appearance (Clear) Urine pH (4.5-7.5) Ur Specific [place] (1.000-1.030) Urine Protein (Negative) Urine Glucose (UA) (Negative) Urine Ketones (Negative) Urine Blood (Negative) Urine Nitrite (Negative) Urine Bilirubin (Negative) Urine Urobilinogen (Negative) Ur Leukocyte Esterase (Negative) Urine WBC (Auto) (0-5) /hpf Urine RBC (Auto) (0-4) /hpf U Hyaline Cast (Auto) (0-5) /lpf U Epithel Cells (Auto) (0-5) /lpf Urine Bacteria (Auto) (Negative) SARS-CoV-2, RNA, NAAT (NEGATIVE) 04/27/22 04/27/22 04/27/22 Range/Units 20:30 20:30 22:44 WBC (4.8-10.8) K/ul RBC (3.93-5.22) M/uL Hgb (12.0-16.0) g/dl Hct (34.1-44.9) % MCV (80.0-100.0) fL MCH (25.0-34.0) pg MCHC (32.0-36.0) g/dL RDW Std Deviation (36.4-46.3) fL RDW Coeff of [place] (11.5-14.5) % Plt Count (130-400) K/uL MPV (9.4-12.3) fL Immature Gran % (Auto) % Neut % (Auto) % Lymph % (Auto) % Bryan % (Auto) % Eos % (Auto) % Baso % (Auto) % Neut # (Auto) (1.4-6.5) K/uL Lymph # (Auto) (1.2-3.4) K/uL Bryan # (Auto) (0.24-0.82) K/uL Eos # (Auto) (0-0.50) K/uL Baso # (Auto) (0-0.2) K/uL Immature Gran # (Auto) (0.00-0.02) K/uL PT (9.0-12.0) Seconds INR (0.9-1.1) APTT (21.0-31.0) Seconds PTT Ratio Sodium (136-145) mmol/L Potassium (3.5-5.1) mmol/L Chloride (98-107) mmol/L Carbon Dioxide (21-32) mmol/L Anion Gap (3-11) BUN (6-23) mg/dl Creatinine (0.6-1.2) mg/dl Est Cr Clr Drug Dosing ml/min Est GFR ( Amer) ml/min Est GFR (Non-Af Amer) ml/min BUN/Creatinine Ratio (10-20) Glucose (70-99(Fasting)) mg/dl Calcium (8.5-10.1) mg/dl Magnesium (1.7-2.4) mg/dl Total Bilirubin (0.2-1.0) mg/dl AST (13-39) U/L ALT (7-52) U/L Alkaline Phosphatase (34-104) U/L Total Protein (6.0-8.3) gm/dl Albumin (3.4-5.0) gm/dl Globulin (2.5-4.0) gm/dl Albumin/Globulin Ratio (0.9-2) TSH 1.076 (0.300-4.500) uIu/ml Urine Color Yellow Urine Appearance Clear (Clear) Urine pH 7.0 (4.5-7.5) Ur Specific [place] 1.015 (1.000-1.030) Urine Protein Negative (Negative) Urine Glucose (UA) Negative (Negative) Urine Ketones Trace H (Negative) Urine Blood Negative (Negative) Urine Nitrite Negative (Negative) Urine Bilirubin Negative (Negative) Urine Urobilinogen Negative (Negative) Ur Leukocyte Esterase Trace H (Negative) Urine WBC (Auto) 1-5 (0-5) /hpf Urine RBC (Auto) 0-4 (0-4) /hpf U Hyaline Cast (Auto) 0 (0-5) /lpf U Epithel Cells (Auto) 10-20 H (0-5) /lpf Urine Bacteria (Auto) Negative (Negative) SARS-CoV-2, RNA, NAAT NEGATIVE (NEGATIVE) Imaging Data Attestation: I personally reviewed and interpreted this imaging study as cash danilo: Radiologist's Impression: Head CT 04/27/22 22:02 CT head/brain wo con CLINICAL HISTORY: ams Technique: Contiguous axial CT images of the head were acquired from the base of the skull to the vertex without intravenous contrast administration. Images were viewed in brain, subdural and bone windows. Automated dose lowering techniques and/or adjustment according to patient size were utilized for this exam. Comparison: Comparison is made to CT head 03/25/2020 Findings: Areas of decreased attenuation are present in the periventricular and subcortical white matter bilaterally consistent with small vessel ischemic disease. Generalized cerebral atrophy with commensurate enlargement of the ventricles, sulci, and cisterns is also present. There is no acute intracranial hemorrhage or evidence of acute territorial infarction. No shift of the midline structures, mass effect, or extra-axial abnormalities are shown. Atherosclerotic calcifications are present in the intracranial segments of the internal carotid arteries. Focal encephalomalacia is in the right frontal lobe. Imaged portions of the paranasal sinuses and mastoid air cells are clear. The orbits appear normal. There are no acute fractures of the calvaria or scalp swelling. Impression: No acute abnormalities are seen. Old encephalomalacia is compatible with chronic appearance of previously noted right frontal lobe infarct. ACT 112: Negative or not required by law. Electronically signed by: Evaristo Lake M.D. 04/27/2022 10:43 PM Chest X-Ray 04/27/22 22:03 XR chest 1V portable CLINICAL HISTORY: ams TECHNIQUE: Single frontal radiograph of the chest was obtained. Comparison: Comparison is made to chest radiograph 01/05/2020 FINDINGS: No lines and tubes are seen. The cardiomediastinal silhouette is normal. The lungs are clear. No evidence of pleural effusion or pneumothorax. IMPRESSION: No acute chest disease. ACT 112: Negative or not required by law. Electronically signed by: Evaristo Lake M.D. 04/27/2022 10:33 PM MDM Narrative Prior records/ancillary studies reviewed and summarized above. Nursing notes reviewed. Additional history obtained from family. The patient's history was concerning for altered mental status. Differential diagnosis: Etiologies such as metabolic, infection, hypoglycemia, electrolyte abnormalities, cardiac sources, intracerebral event, toxicologic, neurologic, as well as others were entertained. Physical examination: As above. ER treatment provided: IV Lock Normal saline hydration . An order was placed for continuous cardiac monitoring. The monitor shows a rate of 60-100 with a sinus rhythm. On reassessment the patients mental status improved. Diagnostics interpretation by me: ECG: Ordered for altered mental status EKG: Normal sinus, normal intervals, Q-wave in the inferior leads, rate of 75. Impression normal sinus rhythm Q waves in the inferior leads interpreted by myself I think arrhythmia is unlikely. EKG shows normal sinus rhythm with no interval abnormalities such as QT prolongation or WPW. There are no findings to suggest Brugada syndrome. Cardiac monitoring in the emergency department reveals no tachycardic or bradycardic dysrhythmia. Hypertrophic cardiomyopathy was considered but there are no clear historical elements pointing toward this. EKG is not suggestive. The QRS voltage is not extremely large The labs revealed euthyroid, negative urine Imaging studies: As above Given the above diagnostic work-up and treatment, this episode appears to be consistent with acute delusions and hallucinations. Further treatment will be required. Consultation: A consultation was placed with the hospitalist. The case was discussed and diagnostics were reviewed. The patient was evaluated in the ER for further treatment. Impression & Plan AMS (altered mental status), Delusional ideas Discharge Plan Visit Data Chief Complaint: Altered Mental Status Stated Complaint: HALLUCINATIONS ED Provider: Onel Fitzgerald ED Midlevel Provider: Camryn Granados Discharge Problem: AMS (altered mental status), Delusional ideas Patient Disposition: Admitted As Inpatient Condition: Fair : AMS (altered mental status) Qualifiers: Altered mental status type: unspecified Qualified Code(s): R41.82 - Altered mental status, unspecified
--- NOTE | 2022-04-28 00:26 | History & Physical Report ---
Date of Service April 28, 2022 Assessment & Plan (1) Hallucinations: Plan: Yasmeen Ribeiro is a 77-year-old female with past medical history of bilateral embolic stroke, CAD, chronic diastolic CHF, severe aortic valve stenosis, hyperlipidemia, hypertension, memory impairment who presented due to reports of hallucinations at home. Hallucinations in the context of known memory impairment, history of CVA At this time her hallucinations seem to be more psych related than neurologic, though it is difficult to fully rule out vascular dementia as a possibility Self-reported history of similar episodes 15 to 16 years ago concerning for possibility of schizophrenia or related disorders Stress/grief from losing her could impact mental health and trigger acute psychosis if she is prone to this Certainly, at this time does not seem to have any obvious metabolic reasons for altered mental status as all her work-up has been unremarkable Will admit for observation Consult psychiatry Considered neurology consult but no neurologic deficits on exam and description of event sounds more psychiatric at this time Similar to reason above, considered further imaging with MRI but feel not necessary at this time CAD/HTN/aortic valve stenosis/HLD/diastolic CHF Continue home metoprolol, quinapril, pravastatin, furosemide, aspirin, Eliquis Depression Continue Wellbutrin DVT prophylaxis: On Eliquis Diet: Heart healthy Dispo: [facility] for observation CODE STATUS: DNR/DNI (2) Memory impairment: (3) HTN (hypertension), benign: (4) Hyperlipidemia: (5) History of CVA (cerebrovascular accident): (6) GERD (gastroesophageal reflux disease): (7) Hypothyroidism: (8) Chronic diastolic CHF (congestive heart failure): (9) CAD (coronary artery disease), [place] coronary artery: History of Present Illness Primary Care Provider: Nick Carrasco DO Yasmeen Ribeiro is a 77-year-old female with past medical history of bilateral embolic stroke, CAD, chronic diastolic CHF, severe aortic valve stenosis, hyperlipidemia, hypertension, memory impairment who presented due to reports of hallucinations at home. At the time of my evaluation, patient is alone in the room and all information received from her directly. She states that as of the past few weeks she has noticed that she has been hearing people walking around her home, specifically the attic. Also states that on 1 occasion she saw someone's eyes looking at her. In retrospect, she does realize that these were hallucinations and there was no one around her home. She does report a history of similar episodes 15 or 16 years ago, which she says eventually resolved. She states she did not talk about these with any healthcare provider, but had told her about them. She states that he went away and did not have recurrence until recently. She also reports that recently it was the anniversary of her 's passing. She has felt this has been very difficult for her and has not been able to fully except the loss. She has seen a therapist in the past, but she stopped as she did not feel that it was a good fit. Per review of chart, nursing note shows that patient's daughter stated concern about these hallucinations knives were found laying around the house,, which the patient gathered when hearing the voices in the attic. Per patient's daughter she does not have an attic in her home. At the time of my evaluation, patient denies active hallucinations. She denies SI/HI. She does not report any significant neurologic deficits. No chest pain, palpitations, nausea, vomiting, shortness of breath, cough, headache, dizziness, weakness, numbness, tingling. In the ED, patient had normal vital signs, largely unremarkable lab work. CT head with no acute findings, though it did show some chronic changes (see CT report for details). Chest x-ray was also negative. She had an EKG without changes from previous. Allergies Allergy/AdvReac Type Severity Reaction Status Date / Time morphine Allergy Severe SHORTNESS Verified 04/27/22 23:13 OF BREATH simvastatin Allergy Unknown Unknown Verified 04/27/22 23:13 Home Medications Medication Instructions Recorded Confirmed Type aspirin 81 mg tablet,delayed 81 mg PO DAILY 03/23/20 04/27/22 History release (Shelbie Low Dose Aspirin) furosemide 20 mg tablet 20 mg PO DAILY PRN Fluid Retention 03/23/20 04/27/22 History pravastatin 40 mg tablet 40 mg PO HS 03/23/20 04/27/22 History apixaban 5 mg tablet (Eliquis) 5 mg PO BID #60 tabs 03/25/20 04/27/22 Rx bupropion HCl 150 mg 24 hr tablet, 150 mg PO DAILY 10/23/20 04/27/22 History extended release acetaminophen 650 mg 1,300 mg PO Q8H PRN Pain 04/27/22 04/27/22 History tablet,extended release bupropion HCl 300 mg 24 hr tablet, 300 mg PO DAILY 04/27/22 04/27/22 History extended release metoprolol succinate 50 mg 50 mg PO HS 04/27/22 04/27/22 History tablet,extended release 24 hr quinapril 10 mg tablet 10 mg PO DAILY 04/27/22 04/27/22 History Past Med/Surg History Medical History (Updated 04/28/22 @ 02:00 by Camryn Granados PA-C) CAD (coronary artery disease), [place] coronary artery Carotid artery stenosis Chronic diastolic CHF (congestive heart failure) DJD (degenerative joint disease) GERD (gastroesophageal reflux disease) History of CVA (cerebrovascular accident) History of right common carotid artery stent placement HTN (hypertension), benign Hx of myocardial infarction Hyperlipidemia Hypothyroidism Severe aortic valve stenosis Subclavian artery stenosis Vertebral artery stenosis Surgical History H/O carotid endarterectomy History of hysterectomy History of thyroidectomy, subtotal Hx of BSO (bilateral salpingo-oophorectomy) Hx of cardiac catheterization Family History Father , age 85 of prostate cancer Coronary heart disease Myocardial infarction, Onset Age: 41 of an MT at age 41 Prostate cancer Mother , age 94 with liver cancer No problems noted. 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 NAD. HEENT: PERRL, EOMI. Moist mucous membranes. NECK: No JVD. No lymphadenopathy. CHEST/LUNGS: CTAB A/P. No crackles, wheezes, rales, rhonchi. HEART: RRR. No m/g/r. ABDOMEN: NT/ND, soft. BS+ x4 EXTREMITIES: No cyanosis, no clubbing, no edema SKIN: Warm and dry. No rashes or lesions. PSYCHIATRIC: A&O x3. Somewhat rambling speech/thought process, though she does converse appropriately. Euthymic affect, no SI, no hallucinations. NEUROLOGIC: No FND. Results & Data Results & Data ([facility]) Vital Signs (Past 12 Hours) Vital Signs Temp Pulse Pulse Resp BP BP Pulse Ox 04/27/22 23:30 72 19 94 04/27/22 21:58 74 18 150/77 H 97 04/27/22 19:55 36.5 C 76 16 152/86 H 94 O2 Del Method 04/27/22 23:30 Room Air 04/27/22 21:58 Room Air 04/27/22 19:55 Room Air Code Status & VTE Plan VTE Prophylaxis Plan VTE Prophylaxis will be ordered: No Supervising Physician Co-Signing Physician Notes Attending addendum: I have physically seen this patient, have supervised the medical residents activities, and agree with the H&P unless as otherwise noted. Assessment and Plan: Hallucinations/dementia/memory impairment/cerebrovascular disease/depression- Possible recent triggers include anniversary of 's Metabolic work-up is negative Continue Wellbutrin for now Consult psychiatry CAD/hypertension/aortic stenosis/diastolic CHF- Continue home regimen: Metoprolol, quinapril, pravastatin, furosemide, aspirin and Eliquis Remaining orders and notations as noted Consideration will need to be given, depend upon patient response, to where patient will live post discharge Resident Activity Tracking Resident Involvement: Resident Care Provided Care Provided: Adult Hospital Medicine
[2022-04-28] MEDS ORDERED: ONDANSETRON INJ 2 MG/ML 2 ML VIAL IV PRN (04:10)
[2022-04-28] MEDS ORDERED: POLYETHYLENE (MIRALAX) 17 GM PACK PO PRN (04:10)
[2022-04-28] MEDS ORDERED: FUROSEMIDE 20 MG TAB PO PRN (04:10)
[2022-04-28] MEDS ORDERED: ACETAMINOPHEN 325 MG TAB PO PRN (04:10)
--- NOTE | 2022-04-28 05:54 | Billing Data ---
Date of Service April 28, 2022 Coding Level of Care Code INT OBSERVATION CARE 68M LVL 3
--- NOTE | 2022-04-28 07:32 | Electrocardiogram Report ---
Test Reason : Blood Pressure : / mmHG Vent. Rate : 075 BPM Atrial Rate : 075 BPM P-R Int : 130 ms QRS Dur : 082 ms QT Int : 402 ms P-R-T Axes : 017 -07 082 degrees QTc Int : 448 ms Normal sinus rhythm Left ventricular hypertrophy with repolarization abnormality Abnormal ECG When compared with ECG of 23-MAR-2020 11:34, No significant change was found Confirmed by Hua Henely ([id number]) on 04/28/2022 7:32:42 AM Referred By: REFERRED SELF Confirmed By:Chiki Henley
[2022-04-28] MEDS ORDERED: buPROPion XL 300 MG TABCR PO SCH (09:00)
[2022-04-28] MEDS: ENALAPRIL MALEATE 10 MG TAB PO SCH (10:04)
[2022-04-28] MEDS: ASPIRIN 81 MG ECTAB PO SCH (10:04)
[2022-04-28] MEDS: APIXABAN 5 MG TABLET PO SCH ×2 (10:05→20:31)
--- NOTE | 2022-04-28 15:42 | Psychiatric Consultation ---
Date of Consultation April 28, 2022 Impression / Recommendations Impression 77 yo with remote history of brief hallucinations and multiple cardiovascular conditions, hx bilateral embolic stroke, possible mild cognitive impairment/vascular dementia, history of depression presenting with new onset visual and auditory hallucinations in context of erratic sleep, lives alone, grief from anniversary of 's , and on Wellbutrin. No evidence for primary psychiatric disorder such as MDD with psychotic features nor primary psychotic disorder (would be near impossible to see schizophrenia or patti present at this point in life and no signs/sx of this on exam or by history) nor delusional disorder based on history. Suspect the start of some sundowning/cognitive impairment related paranoia versus hypnagogic/hypnopompic hallucinations worsening in context of poor sleep vs acute grief/loneliness effects vs dopaminergic side effects from Wellbutrin especially given fairly high dose given her age. Reviewed medication recommendations regarding lowering Wellbutrin and starting mirtazapine which she consents to. Reviewed side affects including but not limited to sedation and increased appetite and need to get up slowly from lying to standing position if she has to use the bathroom in the middle of the night. Hopefully improvement of sleep and lowering the dose of Wellbutrin reduce likelihood of further hallucinations. However should hallucinations persist or occur intermittently would recommend family and patient consider additional in- home supports versus further support in an assisted or personal usp setting as then would more likely suggest sundowning and advancement of possible vascular dementia. Would not recommend antipsychotics at this time given her multiple cardiac cerebrovascular risk factors and no current hallucinations though risks are not felt to outweigh potential minimal benefits. At this point she is not felt to be a safety risk to herself nor others and can speak to ways that she meets her self-care needs. Does not meet criteria for inpatient psychiatric treatment nor does she desire this at this time. (1) Hallucinations: (2) Memory impairment: (3) Hypnopompic hallucination: (4) History of CVA (cerebrovascular accident): (5) Grief: Plan -Psych liason to get further collateral from pt's daughter -Decrease Wellbutrin to 150mg qd, recommend taper in outpt setting and r eplacement with SSRI instead -Start mirtazapine 7.5 mg qhs -c/w prior to admission melatonin, will give 3mg qhs here as 5mg dose not available Psych History Identifying Data 77 yo woman with history of CAD, bilateral embolic strokes, possible mild cognitive impairment/vascular dementia, CHF admitted medically for hallucin ations. Psychiatry consulted for recommendations. Chief Complaint "I would never ever hurt anyone, I just felt nervous". History of Present Illness Yasmeen was admitted after experiencing new onset visual and auditory hallucinations at home over the last 2 weeks intermittently. She recalls seeing someone wearing a towel walking in her home after she woke up from sleep, hearing footsteps of someone in the attic after waking up (per ED notes pt's daughter states she doesn't have an attic) and a sense of people being in her home. She has a history of depression, grief from the of her 9 years ago and many years ago, about 15 or 16 years ago experienced seeing "visions" of someone's eyes about 4 or 5 times outside her home in the yard but was reassured no one was there by her . She recalls maybe being on Ambien at that time but she doesn't think the medication was related to the experience of seeing these visions. No other past history of psychotic symptoms. Today she recalls feeling scared related to people being in her home noting "in my mind, at that time, the number of people I thought were there is increasing and so I was just being careful by holding a knife but I never would have used it on anyone I just felt nervous". She goes on to say that she has never harmed anyone in her life and notes "I would never hurt anyone". She does not have any access to weapons at home. She also recalls that her thermostat read that it was 115 degrees in the attic one day last week and she was "worried because I thought there was a girl up there and she would be hot". She endorses sleep issues noting that she sleeps on her couch as her bed is uncomfortable and that often times she does not fall asleep until approximately 1 AM and will sometimes wake up around 3 or 4 AM and be up for the day. She endorses some depressive symptoms with PHQ-9 score of 10 0 for question 9 noting symptoms of difficulty with sleep, low energy and feeling down due to ongoing grief from the of her 9 years ago. She states that she has still not gotten over his as he was such a wonderful partner and she still misses him dearly. She denies any suicidal ideation nor any prior suicide attempts nor any prior psychiatric hospitalizations. She is currently prescribed Wellbutrin XL 300 mg daily she believes she has only been on this for 6 months but per chart review was on 150 mg as far back as an outpatient neurology appointment in October 2020. She currently takes melatonin 5 mg at bedtime for sleep but no other medications for sleep. 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 Reviewed that the hallucinations can occur at any time of the day but most often occur as she is falling asleep or directly upon awakening. She denies any current hallucinations nor paranoia and is fully oriented to being in the hospital all the day the year though is noted at times to have some word-finding difficulty with recalling names of a few medications and some difficulty with short-term memory related to timing of medications as noted above with Wellbutrin. She agrees to allow the psychiatric liaison to reach out to her daughter for further collateral though notes that her daughter is unlikely to be able to provide much more history as "she was not there". Past Psychiatric History Previous Psych History: see HPI Allergies Allergy/AdvReac Type Severity Reaction Status Date / Time morphine Allergy Severe SHORTNESS Verified 04/27/22 23:13 OF BREATH simvastatin Allergy Unknown Unknown Verified 04/27/22 23:13 Home Medications Medication Instructions Recorded Confirmed Type aspirin 81 mg tablet,delayed 81 mg PO DAILY 03/23/20 04/27/22 History release (Shelbie Low Dose Aspirin) furosemide 20 mg tablet 20 mg PO DAILY PRN Fluid Retention 03/23/20 04/27/22 History pravastatin 40 mg tablet 40 mg PO HS 03/23/20 04/27/22 History apixaban 5 mg tablet (Eliquis) 5 mg PO BID #60 tabs 03/25/20 04/27/22 Rx bupropion HCl 150 mg 24 hr tablet, 150 mg PO DAILY 10/23/20 04/27/22 History extended release acetaminophen 650 mg 1,300 mg PO Q8H PRN Pain 04/27/22 04/27/22 History tablet,extended release bupropion HCl 300 mg 24 hr tablet, 300 mg PO DAILY 04/27/22 04/27/22 History extended release metoprolol succinate 50 mg 50 mg PO HS 04/27/22 04/27/22 History tablet,extended release 24 hr quinapril 10 mg tablet 10 mg PO DAILY 04/27/22 04/27/22 History levothyroxine 112 mcg tablet 112 mcg PO DAILY 04/28/22 04/28/22 History Family History aunt with mental health problems Substance Abuse History denies Personal History Living Arrangements: Home Highest Grade Completed: College 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) Marital Status: Beliefs That Will Affect Care: None Patient History Medical History (Updated 04/28/22 @ 16:25 by Jackeline Andersen MD) CAD (coronary artery disease), [place] coronary artery Carotid artery stenosis Chronic diastolic CHF (congestive heart failure) DJD (degenerative joint disease) GERD (gastroesophageal reflux disease) History of CVA (cerebrovascular accident) History of right common carotid artery stent placement HTN (hypertension), benign Hx of myocardial infarction Hyperlipidemia Hypothyroidism Severe aortic valve stenosis Subclavian artery stenosis Vertebral artery stenosis Surgical History H/O carotid endarterectomy History of hysterectomy History of thyroidectomy, subtotal Hx of BSO (bilateral salpingo-oophorectomy) Hx of cardiac catheterization Family History Father , age 85 of prostate cancer Coronary heart disease Myocardial infarction, Onset Age: 41 of an MA at age 41 Prostate cancer Mother , age 94 with liver cancer No problems noted. 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 Feels Safe at Home: Yes Assistive Devices: Cane Physical Exam Psychiatric: Orientation: alert and oriented x 3 Apperance: appropriately dressed and appropriately groomed Eye Contact: good eye contact Motor Behavior: no abnormal motor movements Speech: normal rate/rhythm/volume of speech Affect: euthymic affect Mood: + depressed mood; no anxious mood Thought Process: linear/logical thought process Thought Content: reality based without delusions Suicidal Thoughts: denies suicidal thoughts Homicidal Thoughts: denies homicidal thoughts Hallucinations: no auditory hallucinations and no visual hallucinations Cognition: recent memory grossly intact, attention grossly intact and language grossly intact; + remote memory not intact Insight: + fair insight Judgement: + limited judgement Vital Signs (Past 24 Hours): Last Vital Signs Temp 36.6 C 04/28/22 14:45 Pulse 72 04/28/22 14:45 Resp 18 04/28/22 14:45 BP 104/68 04/28/22 14:45 Pulse Ox 95 04/28/22 14:45 O2 Del Method 04/28/22 14:45 Review of Systems All systems reviewed & are unremarkable except as noted in HPI & below Results & Data (PSY) Laboratory Results Na+ normal, UA trace leuk esterase but no WBC nor bacteria Medications Administered Apixaban (Apixaban 5 Mg Tablet) 5 mg PO BID ON LICENSE OF [facility] Stop: 05/28/22 08:59 Last Admin: 04/28/22 10:05 Dose: 5 mg Documented By: JOE Aspirin (Aspirin 81 Mg Ectab) 81 mg PO DAILY FELA Stop: 05/28/22 08:59 Last Admin: 04/28/22 10:04 Dose: 81 mg Documented By: JOE Bupropion HCl (Bupropion Xl 300 Mg Tabcr) 300 mg PO DAILY FELA Stop: 05/28/22 08:59 Last Admin: 04/28/22 10:04 Dose: 300 mg Documented By: JOE Enalapril Maleate (Enalapril Maleate 10 Mg Tab) 10 mg PO DAILY FELA Stop: 05/28/22 08:59 Last Admin: 04/28/22 10:04 Dose: 10 mg Documented By: JOE Coding Level of Care Code 45693 Inpt Consult Level 3 Diagnoses Hallucinations R44.3 Memory impairment R41.3 Hypnopompic hallucination R44.2 History of CVA (cerebrovascular accident) Z86.73 Grief F43.21
[2022-04-28] MEDS ORDERED: MELATONIN 3 MG TAB PO PRN (16:26)
[2022-04-28] MEDS ORDERED: METOPROLOL SUCC 50MG EXT REL TAB PO SCH (21:00)
[2022-04-28] MEDS ORDERED: MIRTAZAPINE TAB 15 MG TAB PO SCH (21:00)
[2022-04-28] MEDS ORDERED: PRAVASTATIN SOD 40 MG TAB PO SCH (21:00)
--- NOTE | 2022-04-28 22:21 | Communication Note ---
Date of Service: April 28, 2022 Patient was seen and examined but admitted the same day therefore I will not be billing for this encounter. Hallucinations possible side effect from Wellbutrin use. Will wean off this medication. B12 level with AM labs due to short term memory loss.
[2022-04-29] MEDS ORDERED: LEVOTHYROXINE SODIUM 112 MCG TABLET PO SCH (06:30)
[2022-04-29] MEDS: ASPIRIN 81 MG ECTAB PO SCH (08:19)
[2022-04-29] MEDS: ENALAPRIL MALEATE 10 MG TAB PO SCH (08:19)
[2022-04-29] MEDS: APIXABAN 5 MG TABLET PO SCH (08:19)
[2022-04-29] MEDS ORDERED: buPROPion XL 150 MG TABCR PO SCH (09:00)
--- NOTE | 2022-04-29 14:55 | Psychiatric Progress Note ---
Date of Service April 29, 2022 Impression / Recommendations Impression 77 yo with remote history of brief hallucinations and multiple cardiovascular conditions, hx bilateral embolic stroke, possible mild cognitive impairment/vascular dementia, history of depression presenting with new onset visual and auditory hallucinations in context of erratic sleep, lives alone, grief from anniversary of 's , and on Wellbutrin. No evidence for primary psychiatric disorder such as MDD with psychotic features nor primary psychotic disorder (would be near impossible to see schizophrenia or patti present at this point in life and no signs/sx of this on exam or by history) nor delusional disorder based on history. Suspect the start of some sundowning/cognitive impairment related paranoia versus hypnagogic/hypnopompic hallucinations worsening in context of poor sleep vs acute grief/loneliness effects vs dopaminergic side effects from Wellbutrin especially given fairly high dose given her age. Reviewed medication recommendations regarding lowering Wellbutrin and starting mirtazapine which she consents to. Reviewed side affects including but not limited to sedation and increased appetite and need to get up slowly from lying to standing position if she has to use the bathroom in the middle of the night. Hopefully improvement of sleep and lowering the dose of Wellbutrin reduce likelihood of further hallucinations. However should hallucinations persist or occur intermittently would recommend family and patient consider additional in- home supports versus further support in an assisted or personal usp setting as then would more likely suggest sundowning and advancement of possible vascular dementia. Would not recommend antipsychotics at this time given her multiple cardiac cerebrovascular risk factors and no current hallucinations though risks are not felt to outweigh potential minimal benefits. At this point she is not felt to be a safety risk to herself nor others and can speak to ways that she meets her self-care needs. Does not meet criteria for inpatient psychiatric treatment nor does she desire this at this time. 04/29/22: Slept well with mirtazapine. Would continue this as outpatient. No side effects from lower Wellbutrin dose, mood remains improved and stable. No evidence for any paranoia, hallucinations or psychosis during admission, suspect dementia related and possibly from lack of sleep and dopaminergic Wellbutrin effects. Safe for discharge from psychiatric standpoint. (1) Hallucinations: (2) Memory impairment: (3) Hypnopompic hallucination: (4) History of CVA (cerebrovascular accident): (5) Grief: Plan 04/29/22 -safe for discharge from psychiatric standpoint -Wellbutrin to 150mg qd, recommend taper in outpt setting and replacement with SSRI instead -Continue mirtazapine 7.5 mg qhs -c/w prior to admission melatonin, has 3mg qhs here as 5mg dose not available -consider additional in-home supports or family to start planning for possibility of eventual need for personal usp/assisted living if memory problems worsen Interval History Identifying Information 77 yo woman with history of CAD, bilateral embolic strokes, possible mild cognitive impairment/vascular dementia, CHF admitted medically for hallucinations. Psychiatry consulted for recommendations. Chief Complaint "Last night was the best sleep I've had in a long time". Review of Systems Notes sleep improved, stable appetite Subjective Subjective Patient was seen & assessed and interval progress reviewed. Reviewed collateral from her daughter's discussion with psych liason RN last night-consistent for likely early cognitive impairment component vs some life long slightly unusual behaviors. No hallucinations or evidence of acute psychosis in the hospital. Slept really well last night. Accompanied during interview by her granddaughter who was at bedside. No side effects from mirtazapine or lower dose of Wellbutrin. Mood is improved today after improved sleep, big smiles throughout conversation, future-oriented, enjoyed working with PT and denies any depressive symptoms. Physical Exam Psychiatric Orientation: alert and oriented x 3 Apperance: appropriately dressed and appropriately groomed Eye Contact: good eye contact Motor Behavior: no abnormal motor movements Speech: normal rate/rhythm/volume of speech Affect: euthymic affect Mood: no depressed mood and no anxious mood Thought Process: linear/logical thought process Thought Content: reality based without delusions Suicidal Thoughts: denies suicidal thoughts Homicidal Thoughts: denies homicidal thoughts Hallucinations: no auditory hallucinations and no visual hallucinations Cognition: recent memory grossly intact, attention grossly intact and language grossly intact; + remote memory not intact Insight: + fair insight Judgement: + limited judgement Vital Signs (Past 24 Hours) Last Vital Signs Temp 36.3 C L 04/29/22 08:10 Pulse 64 04/29/22 08:10 Resp 18 04/29/22 08:10 BP 110/70 04/29/22 08:10 Pulse Ox 92 04/29/22 08:10 O2 Del Method 04/29/22 08:10 Results & Data ([facility]) Laboratory Results Laboratory Results - last 24 hr 04/29/22 06:24 Vitamin B12 > 1500 H Current Inpatient Medications Current Inpatient Medications: Current Inpatient Medications Acetaminophen (Acetaminophen 325 Mg Tab) 650 mg PO Q4H PRN PRN Reason: pain/fever Stop: 05/28/22 04:09 Apixaban (Apixaban 5 Mg Tablet) 5 mg PO BID FELA Stop: 05/28/22 08:59 Last Admin: 04/29/22 08:19 Dose: 5 mg Aspirin (Aspirin 81 Mg Ectab) 81 mg PO DAILY FELA Stop: 05/28/22 08:59 Last Admin: 04/29/22 08:19 Dose: 81 mg Bupropion HCl (Bupropion Xl 150 Mg Tabcr) 150 mg PO DAILY FELA Stop: 05/29/22 08:59 Last Admin: 04/29/22 08:19 Dose: 150 mg Enalapril Maleate (Enalapril Maleate 10 Mg Tab) 10 mg PO DAILY FELA Stop: 05/28/22 08:59 Last Admin: 04/29/22 08:19 Dose: 10 mg Furosemide (Furosemide 20 Mg Tab) 20 mg PO DAILY PRN PRN Reason: Fluid Retention Stop: 05/28/22 04:09 Levothyroxine Sodium (Levothyroxine Sodium 112 Mcg Tablet) 112 mcg PO DAILYBB FELA Stop: 05/29/22 06:29 Last Admin: 04/29/22 05:51 Dose: 112 mcg Melatonin (Melatonin 3 Mg Tab) 3 mg PO HS PRN PRN Reason: Sleep Stop: 05/28/22 16:25 Last Admin: 04/28/22 20:31 Dose: 3 mg Metoprolol Succinate (Metoprolol Succ 50mg Ext Rel Tab) 50 mg PO HS FELA Stop: 05/28/22 20:59 Last Admin: 04/28/22 20:31 Dose: 50 mg Mirtazapine (Mirtazapine Tab 15 Mg Tab) 7.5 mg PO HS FELA Stop: 05/28/22 20:59 Last Admin: 04/28/22 20:31 Dose: 7.5 mg Ondansetron HCl (Ondansetron Inj 2 Mg/Ml 2 Ml Vial) 4 mg IV Q6H PRN PRN Reason: Nausea Stop: 05/28/22 04:09 Polyethylene Glycol (Polyethylene (Miralax) 17 Gm Pack) 17 gm PO DAILY PRN PRN Reason: Constipation Stop: 05/28/22 04:09 Pravastatin Sodium (Pravastatin Sod 40 Mg Tab) 40 mg PO HS FELA Stop: 05/28/22 20:59 Last Admin: 04/28/22 20:31 Dose: 40 mg
--- NOTE | 2022-04-29 16:29 | Discharge Summary ---
Date of Service April 29, 2022 Admission HPI Per Admitting Provider Yasmeen Ribeiro is a 77-year-old female with past medical history of bilateral embolic stroke, CAD, chronic diastolic CHF, severe aortic valve stenosis, hyperlipidemia, hypertension, memory impairment who presented due to reports of hallucinations at home. At the time of my evaluation, patient is alone in the room and all information received from her directly. She states that as of the past few weeks she has noticed that she has been hearing people walking around her home, specifically the attic. Also states that on 1 occasion she saw someone's eyes looking at her. In retrospect, she does realize that these were hallucinations and there was no one around her home. She does report a history of similar episodes 15 or 16 years ago, which she says eventually resolved. She states she did not talk about these with any healthcare provider, but had told her about them. She states that he went away and did not have recurrence until recently. She also reports that recently it was the anniversary of her 's passing. She has felt this has been very difficult for her and has not been able to fully except the loss. She has seen a therapist in the past, but she stopped as she did not feel that it was a good fit. Per review of chart, nursing note shows that patient's daughter stated concern about these hallucinations knives were found laying around the house,, which the patient gathered when hearing the voices in the attic. Per patient's daughter she does not have an attic in her home. At the time of my evaluation, patient denies active hallucinations. She denies SI/HI. She does not report any significant neurologic deficits. No chest pain, palpitations, nausea, vomiting, shortness of breath, cough, headache, dizziness, weakness, numbness, tingling. In the ED, patient had normal vital signs, largely unremarkable lab work. CT head with no acute findings, though it did show some chronic changes (see CT report for details). Chest x-ray was also negative. She had an EKG without changes from previous. Principal Diagnosis Visual hallucinations Discharge Exam Constitutional well developed and well nourished; no acute distress and no altered mental status ENMT external ear and nose normal, oropharynx normal Respiratory normal respiratory effort, lungs clear to auscultation Cardiovascular Rate/Rhythm: regular rate and regular rhythm Heart Sounds: normal S1, normal S2 and + murmur (2/6 systolic loudest in apex) Extremities: normal capillary refill; no calf tenderness and no pedal edema Gastrointestinal (Abdomen) normal bowel sounds, soft, nontender, no hepatosplenomegaly Neurologic moves all extremities; no focal motor deficits Speech / Cognition: normal speech, no expressive aphasia and no receptive aphasia Psychiatric A+Ox3, euthymic affect Discharge Data Allergies Allergy/AdvReac Type Severity Reaction Status Date / Time morphine Allergy Severe SHORTNESS Verified 04/27/22 23:13 OF BREATH simvastatin Allergy Unknown Unknown Verified 04/27/22 23:13 Consultations 04/27/22 23:19 ED Decision to Admit Stat 04/28/22 04:10 Consult Psychiatry Routine Ordered Studies 04/27/22 22:02 CT head/brain wo con Stat Impression: No acute abnormalities are seen. Old encephalomalacia is compatible with chronic appearance of previously noted right frontal lobe infarct. Hospital Course (1) Hallucinations: Yasmeen Ribeiro is a 77 year old female observed at [facility] from April 28 - 2021 due to visual hallucinations. She was seen by psychiatry and suspect visual hallucinations could be a side effect of her Wellbutrin and this was reduced to 150mg daily. Recommend taking this dose for a further 14 days then stopping. To help with her depression, insomnia and appetite she was started on mirtazapine to be taken at night. She was advised to follow up with her primary care physician for ongoing management of this as suspect she also has some underlying dementia. Home health referral was made on request of her family and they were also recommended to contact office of ageing for any safety concerns. (2) Memory impairment: (3) HTN (hypertension), benign: (4) Hyperlipidemia: (5) History of CVA (cerebrovascular accident): (6) GERD (gastroesophageal reflux disease): (7) Hypothyroidism: (8) Chronic diastolic CHF (congestive heart failure): (9) CAD (coronary artery disease), [place]qugmi[place] coronary artery: Total Time Total Time Spent Total Time Spent (In Minutes): 45 Discharge Plan Discharge Items Patient Disposition: Home - Home Health Services Reason For Visit: AMS / HALLUCINATIONS Discharge Diagnosis: Visual hallucinations Condition on Discharge: Fair Activity: Resume your previous activity Non-emergency contact: Primary Care Provider Call non-emergency contact if: you have any medication questions and your symptoms worsen Follow-up/Referrals: Jordyn Chowdary PA-C [Primary Care Provider] - Diet: Regular Addtl Attending Provider Instructions: You were observed at [facility] from April 28 - 2021 due to visual hallucinations. Suspect this could be a side effect of your Wellbutrin medication and this was reduced to 150mg daily. Recommend taking this dose for a further 14 days then stopping. To help with your depression, sleep and appetite you were started on mirtazapine to be taken at night. Please follow up with your primary care physician for ongoing management of this. Home health referral has been made to help you at home as there were concern raised by your family. Recommend also contacting office of ageing for any safety concerns. Pending Studies at Discharge: No Stand-Alone Forms: [facility], Smoking Cessation Medications and DC Order Prescriptions: New mirtazapine 7.5 mg tablet 7.5 mg PO HS Qty: 30 0RF Continued aspirin [Shelbie Low Dose Aspirin] 81 mg Tablet,Delayed Release (Dr/Ec) 81 mg PO DAILY furosemide 20 mg tablet 20 mg PO DAILY PRN (Reason: Fluid Retention) pravastatin 40 mg tablet 40 mg PO HS Eliquis 5 mg Tablet 5 mg PO BID Qty: 60 5RF acetaminophen 650 mg Tablet Extended Release 1,300 mg PO Q8H PRN (Reason: Pain) quinapril 10 mg tablet 10 mg PO DAILY metoprolol succinate 50 mg tablet extended release 24 hr 50 mg PO HS levothyroxine 112 mcg tablet 112 mcg PO DAILY bupropion HCl 150 mg tablet extended release 24 hr 150 mg PO DAILY 14 Days Qty: 14 0RF Discontinued bupropion HCl 300 mg tablet extended release 24 hr 300 mg PO DAILY Rx Instructions: ORDERED 03/05/22 FOR 90 DAYS/90 PILLS Discharge Orders: Discharge Order (Routine); Ordered 04/29/22 Ordered By: Shaggy Ramirez/Other Patient Handouts: Grief and Loss Coping Admission Data Admit Date/Time: 04/28/22 00:06 Attending Provider: Shaggy Henriquez Admit Provider: David Mcfadden Primary Care Provider: Jordyn Chowdary Other Providers: Juan Zabala ; Jackeline Andersen ; Netta Mckeon ; Lu Anaya ; [facility],Home Healthcare Other Interventions: Discharge Summary Assessment (RN) Last Done: 04/29/22 16:39 Coding Level of Care Code 60717 OBS Care - Discharge Diagnoses Hallucinations R44.3 Memory impairment R41.3 HTN (hypertension), benign I10 Hyperlipidemia E78.5 History of CVA (cerebrovascular accident) Z86.73 GERD (gastroesophageal reflux disease) K21.9 Hypothyroidism E03.9 Chronic diastolic CHF (congestive heart failure) I50.32 CAD (coronary artery disease), [place]qug[place] coronary artery I25.10 Home Health Attestation I certify that this patient is under my care and that I, or a physicians graphic design assistant working with me, had a face to-face encounter that meets the home health [id number] encounter requirements with this patient. The encounter with the patient was in whole, or in part, for the following medical condition, which is the primary reason for home health care (list medical condition): I certify that, based on my findings, the following services are medically necessary home health services: My clinical findings support the need for the above services because: Further, I certify that my clinical findings support that this patient is homebound (i.e. absences from home require considerable and taxing effort and are for medical reasons or sikh services or infrequently or of short duration when for other reasons) because: Certification for Home Health Services: Based on the above findings, I certify that this patient is confined to the home and needs intermittent fci care, physical therapy and/or speech therapy or continues to need occupational therapy. The patient is under my care, and I have initiated the establishment of the plan of care. This patient will be followed by a physician who will periodically review the plan of care.
== END 2022-04-29 18:19 | disposition home health service (06) ==
LOC: ED 19:47 → EDINP 19:47 → SUATTDRO 04-28 00:06 → 3E 04-28 04:12